=== PATIENT | female | born 1930 | race Caucasian/White ===

== ENCOUNTER 2017-02-07 16:54 | Inpatient (IN) | payer BC ==
[~2017-02-07] VITALS: Ht 162.6 cm; Wt 70.8 kg
[2017-02-07] VITALS (9 sets, daily range): BP systolic 107–156; BP diastolic 45–104
--- NOTE | 2017-02-07 16:55 | NUR ---
[id number] FOR SOB, ARRIVED ON NRM . BS-114. PATIENT A/OX 4, BREATHING LABORED, TACHYPNIC. BILATERAL WHEEZING. VITALS STABLE. SAFETY AND COMFORT MEASURES IN PLACE. AWAITING MD ORDERS.
--- NOTE | 2017-02-07 17:10 | NUR ---
NEW IV STARTED ON RAC, 20 G. BLOOD DRAWN AND SENT TO LAB.
[2017-02-07] MEDS ORDERED: ALBUTEROL FS 2.5 MG/3 ML VIAL.NEB ONE (17:17)
[2017-02-07] MEDS ORDERED: IPRATROPIUM NEB FS 0.5 MG/2.5 ML AMPUL.NEB ONE (17:17)
[2017-02-07] MEDS ORDERED: CALC500T71 PO (17:21)
[2017-02-07] MEDS ORDERED: PRED5DRO7 EACHEYE (17:21)
[2017-02-07] MEDS ORDERED: AMIN30LI2 PO (17:21)
[2017-02-07] MEDS ORDERED: ALPR0.25 PO (17:21)
[2017-02-07] MEDS ORDERED: ONDA4TAB5 PO (17:21)
[2017-02-07] MEDS ORDERED: EPOE1VIA6 SQ (17:21)
[2017-02-07] MEDS ORDERED: LEVO75TA7 PO (17:21)
[2017-02-07] MEDS ORDERED: ACET-868 PO (17:21)
[2017-02-07] MEDS ORDERED: OMEG-132 PO (17:21)
[2017-02-07] MEDS ORDERED: VITA1TAB20 PO (17:21)
[2017-02-07] MEDS ORDERED: LISI-607 PO (17:21)
[2017-02-07] MEDS ORDERED: MULT-213 PO (17:21)
[2017-02-07] MEDS ORDERED: ISOS30TA6 PO (17:21)
[2017-02-07] MEDS ORDERED: LACT1CAP65 PO (17:21)
[2017-02-07] MEDS ORDERED: VITA-294 PO (17:21)
[2017-02-07] MEDS ORDERED: ATOR80TA PO (17:21)
[2017-02-07] MEDS ORDERED: FURO20TA4 PO ×2 (17:21)
[2017-02-07] MEDS ORDERED: TRAV5DRO EACHEYE (17:21)
[2017-02-07] MEDS ORDERED: CARV6.252 PO (17:21)
[2017-02-07] MEDS ORDERED: MAGN400O6 PO (17:21)
[2017-02-07] MEDS ORDERED: ESCI5TAB PO (17:21)
[2017-02-07] MEDS ORDERED: TRAZ-144 PO (17:21)
[2017-02-07] MEDS ORDERED: DORZ10DR13 EACHEYE (17:21)
--- NOTE | 2017-02-07 17:25 | NUR ---
URINE OBTAINED VIA STRAIGHT CATH AND SENT TO LAB PER MD ORDERS.
[2017-02-07 17:29] LABS: BASOPHILS # (AUTO) 0.1 /CMM (0.0-0.2); BASOPHILS % (AUTO) 0.5 % (0.0-2.0); EOSINOPHILS % (AUTO) 0.4 % (0.0-6.0); HEMATOCRIT 32 % (33-45); HEMOGLOBIN 10.6 g/dL (11.5-14.8); LYMPHOCYTES % (AUTO) 8.2 % (20.0-44.0); MEAN CORPUSCULAR HEMOGLOBIN 30 PG (26.0-33.0); MEAN CORPUSCULAR HGB CONC 33 g/dl (31.0-36.0); MEAN CORPUSCULAR VOLUME 92 fL (82-100); MONOCYTES # (AUTO) 0.9 /CMM (0.1-1.30); MONOCYTES % (AUTO) 7.3 % (2.0-12.0); NEUTROPHILS # (AUTO) 9.7 /CMM (1.8-8.9); NEUTROPHILS % (AUTO) 83.6 % (43.0-81.0); PLATELET COUNT (AUTO) 258 /CMM (150-450); RDW COEFFICIENT OF VARIATION 15.6 (11.5-15.0); WHITE BLOOD COUNT (AUTO) 11.7 K/uL (4.3-11.0)
[2017-02-07] MEDS ORDERED: IPRATROPIUM NEB FS 0.5 MG/2.5 ML AMPUL.NEB NEB ONE (17:30)
[2017-02-07] MEDS ORDERED: ALBUTEROL FS 2.5 MG/3 ML VIAL.NEB NEB ONE (17:30)
[2017-02-07 17:48] LABS: INR 1.1 (0.87-1.13); PROTHROMBIN TIME 11.4 SECS (9.5-12.7)
[2017-02-07 17:59] LABS: CALCIUM, SERUM 9.2 mg/dL (8.5-10.1); CARBON DIOXIDE 30 mmol/L (21-32); CHLORIDE 94 mmol/L (98-107); CREATININE 1.1 mg/dL (0.6-1.3); GLUCOSE 162 mg/dL (74-106); POTASSIUM 4.3 mmol/L (3.5-5.1); SODIUM SERUM 129 mmol/L (136-145); UREA NITROGEN, BLOOD 22 mg/dL (7-18)
[2017-02-07] MEDS ORDERED: NITROGLYCERIN PACKET 1 GM PACKET TD ONE (18:00)
[2017-02-07] MEDS ORDERED: ASPIRIN 325 MG TABLET PO ONE (18:00)
[2017-02-07] MEDS ORDERED: FUROSEMIDE 40 MG/4 ML VIAL IV ONE (18:00)
--- NOTE | 2017-02-07 18:05 | NUR ---
PATIENT PLACED ON BIPAP BY RT, 09/08, FIO2 60%, RATE 14. TOLERATING WELL, WILL CONTINUE TO MONITOR.
[2017-02-07 18:07] LABS: APPEARANCE,URINE SL CLOUDY (CLEAR); BILIRUBIN,URINE NEGATIVE (NEGATIVE); BLOOD, URINE TRACE Ery/uL (NEGATIVE); COLOR,URINE YELLOW (YELLOW); KETONES,URINE NEGATIVE (NEGATIVE); LEUKOCYTE ESTERASE ,URINE 3+ (NEGATIVE); NITRITE, URINE POSITIVE (NEGATIVE); PROTEIN,URINE NEGATIVE (NEGATIVE); UGLUCOSE NEGATIVE (NEGATIVE); UROBILINOGEN,URINE 0.2 EU/dL (0.2)
[2017-02-07 18:12] LABS: TROPONIN I 0.056 ng/mL (0.00-0.056)
[2017-02-07 18:15] LABS: ALANINE AMINOTRANSFERASE 19 U/L (12-78); ALKALINE PHOSPHATASE 79 U/L (46-116); ASPARTATE AMINOTRANSFERASE 12 U/L (15-37); B-TYPE NATRIURETIC PEPTIDE 8408 PG/ML (0-125); BILIRUBIN,DIRECT 0.2 mg/dL (0.0-0.2); BILIRUBIN,TOTAL 0.7 mg/dL (0.2-1.0); TOTAL PROTEIN, SERUM 7.4 g/dL (6.4-8.2)
--- NOTE | 2017-02-07 18:15 | NUR ---
@1810 pt. 86 Y OLD FEMALE POST TX'S PLACED ON BIPAP WITH NOTED SETTINGS ( IPAP/EPAP 15/5 RR 14 FIO2 60% PS 10) PER ORDER AND CONTINUE FOR MONITORING. EQUAL CHEST RISE NOTED PT. SORAYA. WELL NO DISTRESS NOTED AMBU BAG REMAIN AT THE BEDSIDE.
[2017-02-07 18:19] LABS: BACTERIA,URINE Many /HPF (None Seen); SQUAMOUS EPITHELIAL CELL,UR Moderate /HPF (None Seen); WBC,URINE 51-80 /HPF (0-3)
[2017-02-07] MEDS ORDERED: NITROGLYCERIN PACKET 1 GM PACKET ONE (18:29)
[2017-02-07] MEDS ORDERED: ASPIRIN 325 MG TABLET ONE (18:29)
[2017-02-07] MEDS ORDERED: FUROSEMIDE 40 MG/4 ML VIAL ONE (18:29)
[2017-02-07] MEDS ORDERED: ONDANSETRON HCL/PF 4 MG/2 ML VIAL IVP PRN (18:30)
[2017-02-07] MEDS ORDERED: ALBUTEROL FS 2.5 MG/0.5 ML VIAL.NEB NEB PRN (18:30)
[2017-02-07] MEDS ORDERED: ZOLPIDEM TARTRATE 5 MG TABLET PO PRN (18:30)
[2017-02-07] MEDS ORDERED: ACETAMINOPHEN 325 MG TABLET PO PRN ×2 (18:30)
[2017-02-07] MEDS ORDERED: MAG HYDROX/AL HYDROX/SIMETH 30 ML UDC PO PRN (18:30)
[2017-02-07] MEDS ORDERED: HYDROCODONE/APAP 5/325MG 1 EACH TABLET PO PRN (18:30)
[2017-02-07] MEDS ORDERED: MAGNESIUM HYDROXIDE 30 ML UDC PO PRN ×2 (18:30)
[2017-02-07] MEDS ORDERED: Z GUARD REMEDY 2 OZ OINT TP PRN (18:30)
--- NOTE | 2017-02-07 18:50 | NUR ---
PATIENT MEDICATED PER MD ORDERS.
--- NOTE | 2017-02-07 19:20 | NUR ---
REPORT GIVEN TO LUPE FOR JORGE.
--- NOTE | 2017-02-07 19:29 | NUR ---
ECHO COMPLETED BY TECH.
--- NOTE | 2017-02-07 19:52 | NUR ---
REPORT GIVEN TO MOE TORO FOR JORGE.
--- NOTE | 2017-02-07 19:54 | NUR ---
PRIME SEPSIS SURVELLIANCE TEAM CALLED RE: PT NEEEDING BROAD [employer], PRIOR TO ADMISSION. AND DR. WHITNEY NOTIFIED. DR. WHITNEY STATED THAT ADMITTING MD PROVIDE ORDERS.
[2017-02-07] MEDS: VITAMIN E 1,000 UNIT CAPSULE PO SCH ×2 (20:00→21:17)
[2017-02-07] MEDS ORDERED: ONDANSETRON 4 MG TAB.RAPDIS PO PRN (20:00)
--- NOTE | 2017-02-07 20:00 | NUR ---
RN NOTES PT BROUGHT IN VIA GURNEY FROM ER. A/O X3, LATVIAN SPEAKING. ON BIPAP WITH SETTINGS 15/5, RATE 14, FIO2 60%, SATURATING WELL, NO S/S OF RESP DISTRESS. CURRENTLY SR ON THE MONITOR, HR 70'S. CURRENTLY ON DIAPERS. SKIN IS INTACT. RIGHT AC 20G AND RIGHT WRIST 24G, BOTH FLUSHED AND PATENT, NO S/S OF INFILTRATION/INFECTION, DRESSINGS CDI. BED LOW AND LOCKED, SIDERAILS UP, CALL LIGHT WITHIN REACH. WILL MONITOR
[2017-02-07] MEDS: NITROGLYCERIN 30 GM TUBE TP SCH (20:46)
[2017-02-07] MEDS ORDERED: FUROSEMIDE 40 MG/4 ML VIAL IV SCH (21:00)
[2017-02-07] MEDS: ENOXAPARIN SODIUM 30 MG/0.3 ML DISP.SYRIN SQ SCH (21:16)
[2017-02-07] MEDS: PROSOURCE / PROSTAT (PYXIS) 30 ML UDC PO SCH (21:16)
[2017-02-07] MEDS: LATANOPROST EYE DROP 0.005% 2.5 ML BOTTLE EACHEYE SCH (21:18)
[2017-02-07] MEDS: TRAZODONE 50 MG TABLET PO SCH (21:19)
[2017-02-07] MEDS: ESCITALOPRAM OXALATE (10 MG) 10 MG TABLET PO SCH (21:19)
[2017-02-07 21:22] LABS: ABG OXYGEN SATURATION 97.7 % (92.0-98.5); ABG PH 7.373 (7.350-7.450); ABG PO2 116.6 mmHg (75.0-100.0); AaDO2 252.9 mmHg; COHb 0.2 % (0.5-1.5); MetHb 0.8 % (0.0-1.5); O2Hb 96.7 % (94.0-97.0); PEEP,BG 5 cm H2O; SITE, ABG Right Radial; VENT MODE, BG S/T 14 15/5 60%
[2017-02-07] MEDS ORDERED: ATORVASTATIN 40 MG TABLET PO SCH (22:00)
[2017-02-08] VITALS (29 sets, daily range): BP systolic 96–150; BP diastolic 38–90
--- NOTE | 2017-02-08 00:45 | NUR ---
RN NOTES PT REMOVED BIPAP MASK, SHE REFUSES TO PUT MASK BACK ON. TEMPORARILY PUT HER ON 5L NASAL CANNULA, CURRENTLY SATURATING @ 94% WITH NO S/S OF RESP DISTRESS. WILL MONITOR CLOSELY AND ATTEMPT TO PUT BACK BIPAP MASK NEEDED
--- NOTE | 2017-02-08 01:09 | NUR ---
RN NOTES PT IS SATURATING @ 89% ON 5L NASAL CANNULA. PUT HER BACK ON BIPAP WITH HER SATURATING > 95%. WILL MONITOR
[2017-02-08] MEDS ORDERED: NITROGLYCERIN PACKET 1 GM PACKET ONE (04:46)
[2017-02-08] MEDS: NITROGLYCERIN 30 GM TUBE TP SCH ×3 (04:47→21:00)
[2017-02-08 05:02] LABS: CALCIUM, SERUM 8.6 mg/dL (8.5-10.1); CARBON DIOXIDE 30 mmol/L (21-32); CHLORIDE 95 mmol/L (98-107); GLUCOSE 93 mg/dL (74-106); MAGNESIUM 2.2 mg/dL (1.8-2.4); PHOSPHORUS 4.2 mg/dL (2.5-4.9); POTASSIUM 3.7 mmol/L (3.5-5.1); SODIUM SERUM 131 mmol/L (136-145); UREA NITROGEN, BLOOD 25 mg/dL (7-18)
--- NOTE | 2017-02-08 06:25 | NUR ---
RN CLOSING NOTES PT REMAINS STABLE OF THE MOMENT. ALL DUE MEDS GIVEN, AM CARE PROVIDED. REMAINS TO BE ON BIPAP WITH SATURATION WNL, NO S/S OF RESP DISTRESS. WILL ENDORSE JORGE TO AM RN
[2017-02-08 07:42] LABS: BASOPHILS % (AUTO) 0.3 % (0.0-2.0); EOSINOPHILS # (AUTO) 0.3 /CMM (0.0-0.7); EOSINOPHILS % (AUTO) 2.5 % (0.0-6.0); HEMATOCRIT 30 % (33-45); HEMOGLOBIN 10.1 g/dL (11.5-14.8); LYMPHOCYTES # (AUTO) 1.3 /CMM (0.8-4.8); LYMPHOCYTES % (AUTO) 10.8 % (20.0-44.0); MEAN CORPUSCULAR HEMOGLOBIN 30 PG (26.0-33.0); MEAN CORPUSCULAR HGB CONC 33 g/dl (31.0-36.0); MEAN CORPUSCULAR VOLUME 91 fL (82-100); MONOCYTES # (AUTO) 0.9 /CMM (0.1-1.30); MONOCYTES % (AUTO) 8.1 % (2.0-12.0); NEUTROPHILS # (AUTO) 9.1 /CMM (1.8-8.9); NEUTROPHILS % (AUTO) 78.3 % (43.0-81.0); PLATELET COUNT (AUTO) 251 /CMM (150-450); RDW COEFFICIENT OF VARIATION 16.5 (11.5-15.0); RED BLOOD CELL COUNT(AUTO) 3.34 MIL/uL (4.0-5.2); WHITE BLOOD COUNT (AUTO) 11.7 K/uL (4.3-11.0)
--- NOTE | 2017-02-08 08:00 | NUR ---
ICU/RN INITIAL NOTES,AM RECEIVED REPORT FROM NIGHT NURSE. PT TAKEN OFF BIPAP AND PLACED ON VENTURI MASK 15L, 50%. PT ALERT, AWAKE, FOLLOWS COMMANDS, TELUGU SPEAKING ONLY. PT ANXIOUS, LABORED RESPIRATIONS NOTED, ATTEMPTING TO GET OUT OF BED. ORDERS FOR ABG RECEIVED. PT ON TELE, SINUS. PYLE IN PLACE DRAINING YELLOW URINE. PIVS PATENT AND INTACT, NO S/S OF INFECTION OR INFILTRATION NOTED. ALL NEEDS WILL BE ATTENDED TO, SAFETY MEASURES TAKEN, BED IN LOW POSITION, SIDE RAILS UP, CALL LIGHT WITHIN REACH. BED ALARM ON.
[2017-02-08 08:06] LABS: THYROID STIMULATING HORMONE 1.143 uIU/mL (0.358-3.74)
[2017-02-08] MEDS: ALPRAZOLAM 0.25 MG TABLET PO PRN ×2 (08:08→21:39)
[2017-02-08] MEDS: VITAMIN B COMP W-C 1 TAB TABLET PO SCH (08:12)
[2017-02-08] MEDS: CALCIUM CARBONATE (1250) 500 MG TABLET PO SCH (08:12)
[2017-02-08] MEDS: MULTIVIT, IRON, MIN NO. 8, FA 1 TAB PO SCH (08:13)
[2017-02-08] MEDS: LISINOPRIL (5MG) 5 MG TABLET PO SCH (08:13)
[2017-02-08] MEDS: CARVEDILOL 6.25 MG TABLET PO SCH ×2 (08:13→17:31)
[2017-02-08] MEDS: ISOSORBIDE MONONITRATE (30MG) 30 MG TAB.SR.24H PO SCH (08:13)
[2017-02-08] MEDS: LEVOTHYROXINE SODIUM 75 MCG TABLET PO SCH (08:14)
[2017-02-08] MEDS: TIMOLOL MAL/DORZOLAM HCL OPHTH 10 ML BOTTLE EACHEYE SCH ×2 (08:14→17:32)
[2017-02-08] MEDS: VITAMIN E 1,000 UNIT CAPSULE PO SCH (08:15)
[2017-02-08] MEDS: PROSOURCE / PROSTAT (PYXIS) 30 ML UDC PO SCH (08:15)
[2017-02-08] MEDS: LACTOBACILLUS RHAMNOSUS GG 1 EACH CAP.SPRINK PO SCH (08:24)
[2017-02-08] MEDS: POTASSIUM CHLORIDE 20 MEQ TAB.PRT.SR PO SCH ×3 (08:24→11:43)
[2017-02-08] MEDS: FUROSEMIDE 40 MG/4 ML VIAL IV SCH ×3 (08:24→17:46)
[2017-02-08] MEDS ORDERED: OMEGA PO SCH (09:00)
[2017-02-08] MEDS ORDERED: DHA PO SCH (09:00)
[2017-02-08] MEDS ORDERED: EPA PO SCH (09:00)
[2017-02-08] MEDS ORDERED: FISH OIL PO SCH (09:00)
[2017-02-08] MEDS ORDERED: [UNRECOGNIZED DRUG - OTHER] PO SCH (09:00)
[2017-02-08 09:04] LABS: ABG BASE EXCESS 3.7 mmol/L; ABG OXYGEN SATURATION 80.8 % (92.0-98.5); ABG PCO2 55.1 mmHg (35.0-45.0); ABG PH 7.357 (7.350-7.450); ABG PO2 47.3 mmHg (75.0-100.0); AaDO2 247.2 mmHg; COHb 0.3 % (0.5-1.5); MetHb 0.8 % (0.0-1.5); O2Hb 79.9 % (94.0-97.0); SITE, ABG Right Radial
--- NOTE | 2017-02-08 09:30 | NUR ---
ICU/RN: ABG REVIEWED BY . PT PLACED BACK ON BIPAP, IN DISTRESS, ANXIOUS.
[2017-02-08] MEDS: ZOSYN IVPB 2.25 G in IV D5W 50ml IV SCH ×3 (11:45→23:29)
[2017-02-08] MEDS ORDERED: EPOETIN ALFA (4000 UNIT) 4,000 UNIT/ML VIAL SQ SCH (15:00)
[2017-02-08] MEDS: ALBUTEROL FS 2.5 MG/0.5 ML VIAL.NEB NEB SCH ×4 (16:30→23:30)
--- NOTE | 2017-02-08 18:10 | NUR ---
ICU/RN: TRANSFER NOTE REPORT ENDORSED TO ANETTE ROSA. PT TRANSFERRED VIA BED AND ACCORDING TO ACLS GUIDELINES. ALL MEDICATIONS AND BELONGINGS SENT WITH PT. DAUGHTER OF PT ACCOMPANIED DURING TRANSFER. VSS. PT TAKEN OFF BIPAP, TOLERATING WELL AT THIS TIME. SETTINGS FOR BIPAP ENDORSED, WILL PLACE ON PT NEEDED. ALL NEEDS MET, BED BATH GIVEN, LINENS CHANGED.
--- NOTE | 2017-02-08 18:30 | NUR ---
RN NOTE RECEIVED PT FROM ICU ON BIPAP, AOX4, DAUGHTER AT BEDSIDE, IV IN PLACE, PYLE CATHETER IN PLACE, ON TELEMETRY SR WITH BBB, 76 BPM, SAFETY MEASURES IMPLEMENTED, KERWIN LIGHT WITHIN REACH.
--- NOTE | 2017-02-08 19:05 | NUR ---
RN NOTE ASKED SEVERAL RTS TO BRING PULSE OXIMETRY MACHINE FOR THE PT, WITHOUT RESULT. WILL FOLLOW UP, PT STABLE ON BIPAP.
--- NOTE | 2017-02-08 20:10 | NUR ---
RN NOTE. RECEIVED THE PT REST ON THE SHERLYN. AWAKE, ALERT, CONFUSED. PT ON BIPAP. SETTINGS 15/5, RATE 18, FIO2 50%. SAT 98%. NO ACUTE DISTRESS NOTED. HEMOTHERAPIST SHOWING NSR. IV RT HAND 20G, RT HAND 24G. SALINE LOCK. HOB ELEVATED. FC PATENT. TURN AND REPOSITION Q2H. WILL CONTINUE TO MONITOR VITALS.
[2017-02-08] MEDS: LATANOPROST EYE DROP 0.005% 2.5 ML BOTTLE EACHEYE SCH (21:23)
[2017-02-08] MEDS: ESCITALOPRAM OXALATE (10 MG) 10 MG TABLET PO SCH (21:24)
[2017-02-08] MEDS: TRAZODONE 50 MG TABLET PO SCH (21:24)
[2017-02-08] MEDS: ENOXAPARIN SODIUM 30 MG/0.3 ML DISP.SYRIN SQ SCH (21:25)
[2017-02-09] VITALS: BP_SYST 114; BP_SYST 118; BP_DIAS 45; BP_DIAS 46
[2017-02-09] MEDS: ALBUTEROL FS 2.5 MG/0.5 ML VIAL.NEB NEB SCH ×5 (02:33→14:49)
--- NOTE | 2017-02-09 02:51 | NUR ---
RN NOTE. AM CARE, ORAL CARE, BED BATH GIVEN. REMAINING SAME BIPAP SETTING TOLERATED WELL. SAT 98%. NETWORK ANNOUNCER SHOWING NSR. IV RT HAND 20G. SALINE LOCK. HOB ELEVATED. AFEBRILE. FC PATENT. TURN AND REPOSITION Q2H. WILL CONTINUE TO MONITOR VITALS.
[2017-02-09 04:00] VITALS: BP_SYST 124; BP_SYST 93; BP_DIAS 50; BP_DIAS 74
[2017-02-09] MEDS: ZOSYN IVPB 2.25 G in IV D5W 50ml IV SCH ×2 (04:59→14:09)
[2017-02-09] MEDS: NITROGLYCERIN 30 GM TUBE TP SCH ×2 (05:00→14:59)
[2017-02-09 06:27] LABS: BASOPHILS # (AUTO) 0.1 /CMM (0.0-0.2); BASOPHILS % (AUTO) 0.6 % (0.0-2.0); EOSINOPHILS # (AUTO) 0.5 /CMM (0.0-0.7); EOSINOPHILS % (AUTO) 4.2 % (0.0-6.0); HEMATOCRIT 30 % (33-45); HEMOGLOBIN 9.7 g/dL (11.5-14.8); LYMPHOCYTES # (AUTO) 1.3 /CMM (0.8-4.8); LYMPHOCYTES % (AUTO) 10.4 % (20.0-44.0); MEAN CORPUSCULAR HEMOGLOBIN 30 PG (26.0-33.0); MEAN CORPUSCULAR HGB CONC 33 g/dl (31.0-36.0); MEAN CORPUSCULAR VOLUME 92 fL (82-100); MONOCYTES # (AUTO) 1.1 /CMM (0.1-1.30); MONOCYTES % (AUTO) 8.8 % (2.0-12.0); NEUTROPHILS # (AUTO) 9.2 /CMM (1.8-8.9); PLATELET COUNT (AUTO) 248 /CMM (150-450); RDW COEFFICIENT OF VARIATION 16.5 (11.5-15.0); WHITE BLOOD COUNT (AUTO) 12.1 K/uL (4.3-11.0)
--- NOTE | 2017-02-09 07:10 | NUR ---
MIRELLA RN NOTES RECEIVED PATIENT AOX2 -3 JAMAICAN SPEAKING ONLY , ON BIPAP SETTINGS ORDERED SPO2 OF 95-98% , SR 85 WITH BBB ON PROOFREADER , FC DRAINING WELL VIA GRAVITY WITH CLEAR YELLOW URINE , IV OF R AC # 20 AND R WRIST # 24 PATENT AND INTACT SL , ALL NEEDS ATTENDED , BED ON LOW AND LOCKED POSITION , SIDE RAILS X2 ,CALL LIGHT WITHIN REACH , HOB @ 35 , WILL CONTINUE TO MONITOR
[2017-02-09 08:00] VITALS: BP 127/39
--- NOTE | 2017-02-09 09:00 | NUR ---
MIRELLA RN NOTES RECEIVED ABG RESULT FROM YULIANA ,BIPAP HELD , PLACED PT ON 10LPM MASK , SPO2 OF 90-92% TOLERATING WELL WILL CONTINUE TO MONITOR
[2017-02-09 09:02] LABS: ALANINE AMINOTRANSFERASE 14 U/L (12-78); ALBUMIN 2.4 g/dL (3.4-5.0); ALKALINE PHOSPHATASE 60 U/L (46-116); ASPARTATE AMINOTRANSFERASE 16 U/L (15-37); BILIRUBIN,TOTAL 0.6 mg/dL (0.2-1.0); CALCIUM, SERUM 8.8 mg/dL (8.5-10.1); CARBON DIOXIDE 31 mmol/L (21-32); CHLORIDE 98 mmol/L (98-107); CREATININE 1.4 mg/dL (0.6-1.3); GLUCOSE 97 mg/dL (74-106); MAGNESIUM 2.2 mg/dL (1.8-2.4); SODIUM SERUM 135 mmol/L (136-145); TOTAL PROTEIN, SERUM 6.2 g/dL (6.4-8.2); UREA NITROGEN, BLOOD 35 mg/dL (7-18)
[2017-02-09 09:07] LABS: TROPONIN I 0.073 ng/mL (0.00-0.056)
[2017-02-09] MEDS: CALCIUM CARBONATE (1250) 500 MG TABLET PO SCH (09:10)
[2017-02-09] MEDS: LISINOPRIL (5MG) 5 MG TABLET PO SCH (09:10)
[2017-02-09] MEDS: VITAMIN B COMP W-C 1 TAB TABLET PO SCH (09:10)
[2017-02-09] MEDS: TIMOLOL MAL/DORZOLAM HCL OPHTH 10 ML BOTTLE EACHEYE SCH ×2 (09:11→17:02)
[2017-02-09] MEDS: VITAMIN E 1,000 UNIT CAPSULE PO SCH (09:11)
[2017-02-09] MEDS: LACTOBACILLUS RHAMNOSUS GG 1 EACH CAP.SPRINK PO SCH (09:11)
[2017-02-09] MEDS: CARVEDILOL 6.25 MG TABLET PO SCH ×2 (09:11→17:03)
[2017-02-09] MEDS: ISOSORBIDE MONONITRATE (30MG) 30 MG TAB.SR.24H PO SCH (09:11)
[2017-02-09] MEDS: LEVOTHYROXINE SODIUM 75 MCG TABLET PO SCH (09:11)
[2017-02-09] MEDS: PROSOURCE / PROSTAT (PYXIS) 30 ML UDC PO SCH (09:11)
[2017-02-09] MEDS: MULTIVIT, IRON, MIN NO. 8, FA 1 TAB PO SCH (09:11)
[2017-02-09] MEDS: ALPRAZOLAM 0.25 MG TABLET PO PRN (09:12)
[2017-02-09 09:13] LABS: ABG BASE EXCESS 6.8 mmol/L; ABG OXYGEN SATURATION 92.5 % (92.0-98.5); ABG PCO2 48.3 mmHg (35.0-45.0); ABG PH 7.438 (7.350-7.450); ABG PO2 64.7 mmHg (75.0-100.0); COHb 0.8 % (0.5-1.5); MetHb 0.4 % (0.0-1.5); O2Hb 91.4 % (94.0-97.0); SITE, ABG Right Radial; VENT MODE, BG simple mask
--- NOTE | 2017-02-09 09:40 | NUR ---
MIRELLA RN NOTES SEEN AND EVALUATED BY DR GUTIERREZ , DISCUSSED LABS , VITAL SIGNS , PT HAS CRACKLES ON BILETERAL LOWER LOBE UPON AUSCULTATION , PER MD HE WILL ORDER LASIX FOR DIURESIS .
[2017-02-09] MEDS: FUROSEMIDE 40 MG/4 ML VIAL IV SCH ×3 (10:34→17:02)
[2017-02-09 12:00] VITALS: BP 129/45
[2017-02-09 12:12] LABS: *SPE ALBUMIN 3.2 g/dL (2.9-4.4); *SPE ALPHA-1-GLOBULIN 0.4 g/dL (0.0-0.4); *SPE BETA GLOBULIN 0.8 g/dL (0.7-1.3); *SPE GLOBULIN, TOTAL 3.2 g/dL (2.2-3.9); *SPE M-SPIKE Not Observed g/dL (Not Observed); *SPE PROTEIN TOTAL 6.4 g/dL (6.0-8.5); *SPEGAMMA GLOBULIN 1.1 g/dL (0.4-1.8)
[2017-02-09] MEDS ORDERED: SOD FERRIC GLUC 125 MG in IV NS 0.9% 100 ML IV SCH (14:00)
[2017-02-09 16:00] VITALS: BP_SYST 136; BP_SYST 139; BP_DIAS 77
[2017-02-09 17:03] VITALS: BP 136/77
--- NOTE | 2017-02-09 18:30 | NUR ---
RN NOTES PATIENT STABLE UPON DISCHARGE , NOT IN ACUTE DISTRESS , AFEBRILE , V/S STABLE ,ON 6LPM NC SPO2 OF 100% , SR 75 ON TELE MONITOR , AOX3 GREEK SPEAKING ,DAUGHTER AT BEDSIDE , DISCUSSED DISCHARGE INSTRUCTIONS , MEDICATIONS AND TRANSFER TO [facility] DUE TO INSURANCE , PT WILL BE TRANSFERRED TO ROOM 504 , FC DRAINING VIA GRAVITY WITH CLEAR YELLOW URINE , SKIN ASSESSMENT DONE , SKIN IS INTACT NO NEW WOUNDS NOTED , IV OF L AC # 20 AND R WRIST # 24 PATENT AND INTACT SL , RPOERT GIVEN TO EMS FOR PATIENT TRANSFER , POLST GIVEN TO EMS SPOKE WITH MARIA LUISA ROSA FROM [facility] , REPORT GIVEN FOR CONTINUITY OF CARE , ALL QUESTIONS ANSWERED , NOTIFIED PT IS ON CONTACT ISOLATION , S DIFF STOOL IS POSITIVE , BUT PT HAS NO ACTIVE DIARRHEA .
[2017-02-09] MEDS ORDERED: MEROPENEM 500 MG in IV NS 0.9% 50 ML IV SCH (21:00)
== END 2017-02-09 18:21 | disposition short-term general hospital (02) | DRG 871 ==
LOC: ER 16:55 → ICU 19:39 → TELE-TD 19:39 → UNDOADMIN 19:39 → TELE-TD 02-08 18:28
PROVIDERS: ADMIT Internal Medicine; ATTEND Internal Medicine
PROC: 5A09457 Assistance with Respiratory Ventilation, 24-96 Consecutive Hours, Continuous Positive Airway Pressure (ICD-10-PCS; principal; 2017-02-07)
DX: A41.9 Sepsis, unspecified organism (principal); I50.23 Acute on chronic systolic (congestive) heart failure; I21.A1 Myocardial infarction type 2; E43 Unspecified severe protein-calorie malnutrition; J96.01 Acute respiratory failure with hypoxia; J96.02 Acute respiratory failure with hypercapnia; J18.9 Pneumonia, unspecified organism; N17.9 Acute kidney failure, unspecified; E88.09 Other disorders of plasma-protein metabolism, not elsewhere classified; I13.0 Hypertensive heart and chronic kidney disease with heart failure and stage 1 through stage 4 chronic kidney disease, or unspecified chronic kidney disease; N39.0 Urinary tract infection, site not specified; E87.1 Hypo-osmolality and hyponatremia; D63.8 Anemia in other chronic diseases classified elsewhere; E03.9 Hypothyroidism, unspecified; E66.01 Morbid (severe) obesity due to excess calories; E78.5 Hyperlipidemia, unspecified; F41.9 Anxiety disorder, unspecified; I25.10 Atherosclerotic heart disease of native coronary artery without angina pectoris; N18.9 Chronic kidney disease, unspecified; Z66 Do not resuscitate; Z79.899 Other long term (current) drug therapy; M62.50 Muscle wasting and atrophy, not elsewhere classified, unspecified site; B96.20 Unspecified Escherichia coli [E. coli] as the cause of diseases classified elsewhere; Z16.12 Extended spectrum beta lactamase (ESBL) resistance; Z68.26 Body mass index [BMI] 26.0-26.9, adult; I25.2 Old myocardial infarction; R65.20 Severe sepsis without septic shock
CPT/HCPCS: 36415; 36600; 71010-TC; 80048-TC; 80053-TC; 80061-TC; 80076-TC; 81000-TC; 82272-TC; 82306; 82728-TC; 82803-TC; 83540-TC; 83605-TC; 83735-TC; 83880; 84100-TC; 84155; 84165; 84439-TC; 84443-TC; 84484-TC; 85025-TC; 85730-TC; 87040-TC; 87081-TC; 87086-TC; 87186-TC; 93307-TC; 99082-TC; A4216; A4606; J0885; J1650; J1940; J2185; J2543; J2916; J7030; J7060

== ENCOUNTER 2017-02-17 23:53 | Inpatient (IN) | payer BC ==
[~2017-02-17] VITALS: Ht 167.6 cm; Wt 69.4 kg
[~2017-02-17 23:53] MED LIST: ACET-868 PO; ALPR0.25 PO; AMIN30LI2 PO; ATOR80TA PO; CALC500T71 PO; CARV6.252 PO; DORZ10DR13 EACHEYE; EPOE1VIA6 SQ; ESCI5TAB PO; FURO20TA4 PO; ISOS30TA6 PO; LACT1CAP65 PO; LEVO75TA7 PO; LISI-607 PO; MAGN400O6 PO; MULT-213 PO; OMEG-132 PO; ONDA4TAB5 PO; PRED5DRO7 EACHEYE; TRAV5DRO EACHEYE; TRAZ-144 PO; VITA-294 PO; VITA1TAB20 PO
[2017-02-18] VITALS (92 sets, daily range): BP systolic 67–136; BP diastolic 34–96
--- NOTE | 2017-02-18 00:10 | NUR ---
PT IS ON THE MONITOR AND CONTINUOUS PULSE OX. PT IS HYPOTENSIVE AND C/O CHEST PAIN 5/10. DIMINSHED BREATH SOUNDS NOTED BILATERALLY. PT HAS A BRUISE ON LLQ OF ABD AND IS ON A DIAPER. NO SKIN BREAKDOWN NOTED.
--- NOTE | 2017-02-18 00:10 | NUR ---
PT BIB PA WITH A C/O SOB, POSS PNA FROM SNF. PT IS AA7O X2. PT SPEAKS SOME SCOTTISH AND IS PREDOMINENTLY SLOVENIAN SPEAKING.
[2017-02-18] MEDS ORDERED: VANCOMYCIN 1 GM in IV D5W 250 ML IV ONE (00:30)
[2017-02-18] MEDS ORDERED: PIPERACILLIN /TAZOBACTAM 3.375 G in IV D5W 50 ML IV ONE (00:30)
[2017-02-18] MEDS ORDERED: LEVOFLOXACIN 750 MG /D5W 150ML 150 ML IV ONE (00:30)
[2017-02-18] MEDS ORDERED: ACETAMINOPHEN 650 MG/SUPP.RECT RC ONE ×2 (00:30→00:39)
[2017-02-18] MEDS ORDERED: DILTIAZEM HCL 50 MG IV IV ONE (00:30)
[2017-02-18] MEDS ORDERED: DILTIAZEM HCL IV 125 MG in IV D5W 100 ML IV PRN (00:30)
[2017-02-18] MEDS ORDERED: DILTIAZEM HCL 50 MG IV ONE (00:39)
[2017-02-18 00:41] LABS: BASOPHILS % (AUTO) 0.1 % (0.0-2.0); EOSINOPHILS # (AUTO) 0.1 /CMM (0.0-0.7); EOSINOPHILS % (AUTO) 0.2 % (0.0-6.0); HEMATOCRIT 35 % (33-45); LYMPHOCYTES % (AUTO) 3.5 % (20.0-44.0); MEAN CORPUSCULAR HEMOGLOBIN 29 PG (26.0-33.0); MEAN CORPUSCULAR HGB CONC 31 g/dl (31.0-36.0); MEAN CORPUSCULAR VOLUME 93 fL (82-100); MONOCYTES % (AUTO) 3.8 % (2.0-12.0); NEUTROPHILS # (AUTO) 25.2 /CMM (1.8-8.9); NEUTROPHILS % (AUTO) 92.4 % (43.0-81.0); PLATELET COUNT (AUTO) 263 /CMM (150-450); RDW COEFFICIENT OF VARIATION 17.1 (11.5-15.0); RED BLOOD CELL COUNT(AUTO) 3.79 MIL/uL (4.0-5.2); WHITE BLOOD COUNT (AUTO) 27.3 K/uL (4.3-11.0)
[2017-02-18 00:54] LABS: CALCIUM, SERUM 8.7 mg/dL (8.5-10.1); CARBON DIOXIDE 28 mmol/L (21-32); CHLORIDE 96 mmol/L (98-107); CREATININE 2.4 mg/dL (0.6-1.3); GLUCOSE 178 mg/dL (74-106); POTASSIUM 3.8 mmol/L (3.5-5.1); SODIUM SERUM 132 mmol/L (136-145); UREA NITROGEN, BLOOD 40 mg/dL (7-18)
--- NOTE | 2017-02-18 00:55 | NUR ---
IN & OUT PYLE CATH DONE. APPROX 150 ML TURBID URINE OUTPUT NOTED. LAB CALLED FOR P/U
[2017-02-18 01:00] LABS: ALANINE AMINOTRANSFERASE 20 U/L (12-78); ALBUMIN 2.5 g/dL (3.4-5.0); ALKALINE PHOSPHATASE 92 U/L (46-116); ASPARTATE AMINOTRANSFERASE 10 U/L (15-37); BAND % (MANUAL) 2 % (0.0-5.0); BILIRUBIN,DIRECT 0.2 mg/dL (0.0-0.2); BILIRUBIN,TOTAL 0.7 mg/dL (0.2-1.0); LYMPHOCYTES % (MANUAL) 11 % (16-48); MONOCYTES % (MANUAL) 5 % (0-11.0); NEUTROPHILS % (MANUAL) 82 (42-76); TOTAL PROTEIN, SERUM 7.1 g/dL (6.4-8.2)
[2017-02-18] MEDS ORDERED: IV NS 0.9% 500 ML BAG IV ONE (01:00)
[2017-02-18] MEDS ORDERED: IV NS 0.9% 1,000 ML BAG IV ONE ×2 (01:00)
[2017-02-18 01:07] LABS: TROPONIN I 1.585 ng/mL (0.00-0.056)
[2017-02-18] MEDS ORDERED: ASPIRIN 325 MG TABLET PO ONE (01:30)
[2017-02-18] MEDS ORDERED: NS IV SCH ×2 (01:30)
[2017-02-18] MEDS ORDERED: Z GUARD REMEDY 2 OZ OINT TP PRN (01:30)
[2017-02-18] MEDS ORDERED: VANCOMYCIN 1 GM in IV D5W 250 ML IV SCH (01:30)
[2017-02-18] MEDS ORDERED: ONDANSETRON HCL/PF 4 MG/2 ML VIAL IVP PRN (01:30)
[2017-02-18] MEDS ORDERED: IV NS 0.9% 1,000 ML IV SCH (01:30)
[2017-02-18] MEDS ORDERED: MAGNESIUM HYDROXIDE 30 ML UDC PO PRN (01:30)
[2017-02-18] MEDS ORDERED: MAG HYDROX/AL HYDROX/SIMETH 30 ML UDC PO PRN (01:30)
[2017-02-18] MEDS: DILTIAZEM HCL 30 MG TABLET PO SCH ×2 (01:30→05:17)
[2017-02-18] MEDS ORDERED: PIPERACILLIN /TAZOBACTAM 3.375 G VIAL IV ONE (01:32)
--- NOTE | 2017-02-18 01:40 | NUR ---
PYLE CATH INSERTED APPROX 5 ML YELLOW URINE OUTPUT NOTED.
[2017-02-18] MEDS ORDERED: VANCOMYCIN 1 GM VIAL ONE (01:50)
[2017-02-18 01:53] LABS: APPEARANCE,URINE TURBID (CLEAR); BILIRUBIN,URINE 1+ (NEGATIVE); BLOOD, URINE 2+ Ery/uL (NEGATIVE); COLOR,URINE BROWN (YELLOW); KETONES,URINE TRACE (NEGATIVE); LEUKOCYTE ESTERASE ,URINE 3+ (NEGATIVE); NITRITE, URINE NEGATIVE (NEGATIVE); PH,URINE 5.5 (5.0-8.0); PROTEIN,URINE 2+ mg/dl (NEGATIVE); UGLUCOSE NEGATIVE (NEGATIVE); UROBILINOGEN,URINE 0.2 EU/dL (0.2)
--- NOTE | 2017-02-18 02:00 | NUR ---
DR. MARTINEZ CALLED AND I SPOKE TO HER RE: THE PT. PT IS STILL HYPOTENSIVE. APPROX 500 ML NS OF 2500 ML NS BOLUS INFUSED. DR. MARTINEZ WOULD LIKE A CENTRAL LINE INSERTED. DR. COTTRELL IS NOT GOING TO INSERT CENTRAL LINE AT THIS TIME. PT'S BLOOD PRESSURE IS IMPROVING. PT HAS 3 PERIPHERAL IV'S AND PT HAS 200 ML NS TO BE INFUSED. WILL RE-ASSESS LATER.
[2017-02-18 02:01] LABS: BACTERIA,URINE Moderate /HPF (None Seen); SQUAMOUS EPITHELIAL CELL,UR Few /HPF (None Seen); URINE AMORPHOUS URATE Few /HPF (None Seen); WBC,URINE TOO NUMEROUS TO COUN /HPF (0-3)
--- NOTE | 2017-02-18 02:11 | NUR ---
PT IS SATURATING AT 95% ON 4L VIA NC. PT IS MOUTH BREATHING. PT PLACED ON SIMPLE MASK AT 8L PER DR. COTTRELL.
--- NOTE | 2017-02-18 02:16 | NUR ---
ENDORSED SEPSIS RE-ASSESSMENT TO ICU NURSE. APPROX 750 ML NS STILL INFUSING.
--- NOTE | 2017-02-18 02:16 | NUR ---
CALLED REPORT TO DONNA GAITAN -ICU. ENDORSED LEVOQUIN IVP TO DONNA GAITAN.
--- NOTE | 2017-02-18 02:16 | NUR ---
PT IS C/O FEELING COLD. PT'S ORAL TEMP IS 98.1. PT HAS A SHEET OVER HER AND STATED THAT SHE IS FEELING BETTER.
--- NOTE | 2017-02-18 02:18 | NUR ---
PT'S BP IS NOW 114/44. DR. COTTRELL IS OK WITH PT BEING TRANSFERRED TO ICU.
--- NOTE | 2017-02-18 02:20 | NUR ---
PT LEFT FOR ICU VIA RBIG LAUREL.
--- NOTE | 2017-02-18 02:40 | NUR ---
ICU/RAISER HELPER RECEIVED PT FROM ER VIA GURNEY, PT IS ON 8 LITERS VIA MASK WITH SATURATION AT 95%. PT WAS ALERT AND ORT X3-4. PT ABLE TO REPLY TO SIMPLE COMMANDS. PT TRANSFER TO BED, PLACED ON PREPARATION PLANT SUPERVISOR . ASSESSMENT DONE, PT CONTINUED WITH SEPSIS PROTOCOL IVF STILL RUNNING. PT WAS ORT TO ROOM AND CALL LIGHT. DAUGHTER AT BEDSIDE
--- NOTE | 2017-02-18 02:45 | NUR ---
PT'S DAUGHTER, CLAUDINE GALVAN, IS IN THE ICU WAITING ROOM. ICU NOTIFIED. PT TRANSPORTED TO ICU VIA GURNEY PER PROTOCOL.
--- NOTE | 2017-02-18 02:53 | NUR ---
ICU/VOCAL ARTIST CORPORATE CALLED SAID THAT PT WAS UNDER SEPSIS PROTOCOL DUE HIGH LACTIC ACID AND THE REPEAT WAS HIGH WELL AT 2.1. PT WAS TO HAVE 2 BLOOD PRESSURE DOCUMENTATION IF STILL LOW F/U WITH MD. CHARGE NURSE AWARE OF THIS.
--- NOTE | 2017-02-18 03:20 | NUR ---
ICU/RISK MANAGEMENT CONSULTANT PRIMARY MD CALLED DUE TO BLOOD PRESSURE BEING LOW 60'S. CHARGE NURSE AWARE OF THE LOW BLOOD PRESSURE. CALLED MD TO START LEVO TO GET BLOOD PRESSURE GREATER THAN 90'S.
[2017-02-18] MEDS ORDERED: NOREPINEPHRINE 8 MG in IV D5W 500 ML IV PRN ×2 (03:30→09:00)
[2017-02-18] MEDS ORDERED: IV NS 0.9% 1,000 ML IV PRN (03:30)
[2017-02-18] MEDS ORDERED: METRONIDAZOLE 500MG/ NS 100ML 500 MG in PREMIX 1 EA IV SCH ×2 (03:30→13:00)
[2017-02-18] MEDS ORDERED: METRONIDAZOLE 500MG/ NS 100ML 100 ML IV ONE (04:05)
[2017-02-18] MEDS ORDERED: LEVOFLOXACIN 500 MG /D5W 100ML 100 ML IV ONE (04:05)
[2017-02-18] MEDS ORDERED: ASPIRIN 325 MG TABLET ONE (04:06)
[2017-02-18] MEDS ORDERED: DILTIAZEM HCL 30 MG TABLET ONE (04:06)
[2017-02-18] MEDS ORDERED: MEROPENEM 1 G VIAL IV ONE (04:06)
[2017-02-18] MEDS ORDERED: VANCOMYCIN HCL 125 MG/2.5 ML ORAL.SUSP ONE (04:16)
--- NOTE | 2017-02-18 04:20 | NUR ---
ICU/SAMPLE SHOE INSPECTOR AND REWORKER ER MD CAME TO PLACE CENTRAL LINE TO START LEVO FOR BLOOD PRESSURE MEDICATION. THERE WAS 2 FAILED ATTEMPTS. IN MORNING PICC LINE NURSE TO COME AND PLACE LINE. DAUGHTER IS AWARE OF THIS. ALSO AT THIS TIME ER MD SAID THAT PT NEEDS TO HAVE LEVO DUE TO LOW BLOOD PRESSURE, LEVO AT THIS TIME STARTED AT 2MCG FROM CHARGE NURSE. CALL LIGHT WITHIN REACH. ALSO AT THIS TIME THE SECOND ROUND OF IVF FROM THE SECOND SEPSIS PROTOCOL FINISHED. BLOOD PRESSURE IS STILL IN THE 70'S. CHARGE NURSE AWARE OF THIS.
[2017-02-18] MEDS ORDERED: NOREPINEPHRINE 4 MG/4 ML AMPUL IV ONE (04:26)
--- NOTE | 2017-02-18 04:50 | NUR ---
ICU/TELEMARKETING REPRESENTATIVE LEVO WAS INCREASED TO 4MCG FROM 2MCG DUE TO LOW BLOOD PRESSURE, CHARGE AWARE AND INCREASED THE LEVO WILL CONTINUE TO MONITOR THIS PT. PT APPEARS COMFORTABLE WITH CALL LIGHT WITHIN REACH
[2017-02-18] MEDS ORDERED: MEROPENEM 1 G in IV NS 0.9% 100 ML IV SCH (05:00)
--- NOTE | 2017-02-18 05:00 | NUR ---
ICU/ORAL SURGERY PHYSICIAN LEVO INCREASED TO 6MCG FROM 4. THE BLOOD PRESSURE IS 71/48. CHARGE NURSE AWARE AND INCREASED THE LEVO AND CONTINUED TO MONITOR THE BLOOD PRESSURE.
[2017-02-18] MEDS: VANCOMYCIN HCL 125 MG/2.5 ML ORAL.SUSP PO SCH ×4 (05:17→23:43)
--- NOTE | 2017-02-18 05:30 | NUR ---
ICU/AADC PLANS STAFF OFFICER LEVO AGAIN INCREASED TO 8MCG FROM 6 MCG, BLOOD PRESSURE IS 79/42. CHARGE NURSE IS AWARE OF THIS, AT THIS TIME INCREASED LEVO TO MAINTAIN SBP TO 90 WHICH MD ORDERED.
[2017-02-18 05:34] LABS: INR 1.47 (0.87-1.13); PROTHROMBIN TIME 15.4 SECS (9.5-12.7)
--- NOTE | 2017-02-18 05:53 | NUR ---
ICU/INFORMATION TECHNOLOGY SECURITY ANALYST LACTIC ACID IS NOW 1.8, WITHIN NORMAL RANGE. ALSO BLOOD PRESSURE IS 92/62. CHARGE NURSE IS AWARE OF THIS. WILL CONTINUE TO MONITOR THIS PT. CALL LIGHT WITHIN REACH, PT APPEARS TO BE COMFORTABLE NO ACUTE SIGNS OF DISTRESS.
[2017-02-18] MEDS ORDERED: PIPERACILLIN /TAZOBACTAM 4.5 G in IV D5W 50 ML IV SCH (06:00)
--- NOTE | 2017-02-18 08:00 | NUR ---
ICU/RN INITIAL NOTES,AM RECEIVED REPORT FROM NIGHT NURSE. PT ALERT, AWAKE, FOLLOWS COMMANDS. PT INDONESIAN SPEAKING ONLY. DAUGHTER AT BEDSIDE. PT ON 8LITERS SIMPLE MASK, TOLERATING WELL. NO ACUTE DISTRESS NOTED, MAINTAINING O2 SAT >92%. PT CONTINUE TO BE CONTROLLED A.FIB ON TELE, AWAITING CARDIOLOGY CONSULT. PT ON 8MCG LEVO FOR BP SUPPORT VIA PERIPHERAL LINE. SOME REDNESS AND TENDERNESS NOTED. STOPPED VASOPRESSOR, FLUSHED LINE AND DISCONTINUED PIV. PLACED ON DIFFERENT PIV. AWAITING FOR PICC NURSE TO INSERT LINE. RIGHT ARM ELEVATED WITH COMPRESS. NO PAIN NOTED, MILD REDNESS NOTED. PYLE CATH IN PLACE, DRAINING DONALD URINE. LOW URINE OUTPUT, NEPHROLOGY CONSULT PENDING. PT CURRENTLY ON FULL LIQUID DIET. ALL NEEDS WILL BE ATTENDED TO, SAFETY MEASURES TAKEN, BED IN LOW POSITION, SIDE RAILS UP, CALL LIGHT WITHIN REACH. WILL FOLLOW UP WITH ASSOCIATE ART DIRECTOR REGARDING PICC RN ETA.
[2017-02-18] MEDS ORDERED: AMIODARONE 900 MG in IV D5W 500 ML IV PRN (08:30)
[2017-02-18] MEDS ORDERED: AMIODARONE 150 MG in IV D5W 100 ML IV ONE (08:30)
[2017-02-18] MEDS: LEVOTHYROXINE SODIUM 75 MCG TABLET PO SCH (08:46)
[2017-02-18] MEDS: ASPIRIN 81 MG TAB.CHEW PO SCH (08:46)
[2017-02-18] MEDS ORDERED: CARVEDILOL 6.25 MG TABLET PO SCH (09:00)
[2017-02-18] MEDS ORDERED: PANTOPRAZOLE 40 MG VIAL IV SCH (09:00)
[2017-02-18] MEDS ORDERED: FEE PK DOSING 1 MIN EA MC ONE (09:00)
[2017-02-18] MEDS ORDERED: HEPARIN SODIUM, PORCINE 5000 UNITS/1 ML VIAL IV ONE (09:00)
[2017-02-18] MEDS: HEPARIN INFUSION/D5W 500 ML IV PRN (09:18)
[2017-02-18] MEDS ORDERED: AMIODARONE 900 MG in IV D5W 482 ML IV PRN (09:30)
--- NOTE | 2017-02-18 10:20 | NUR ---
ICU/RN: ROUNDS: 0820-PT SEEN BY DR. GUTIERREZ. PT ASSESSED, MD SPOKE TO DAUGHTER AND ANSWERED ALL QUESTIONS. ORDERS RECEIVED TO START PT ON AMIO DRIP AND HEPARIN DRIP PER ACS PROTOCOL. WILL FOLLOW THROUGH. 1009- AT BEDSIDE. ALL QUESTIONS ANSWERED, PT ASSESSED. NEW ORDERS RECEIVED. WILL FOLLOW THROUGH.
--- NOTE | 2017-02-18 10:30 | NUR ---
ICU/RN: PER SUSTAINABILITY PURCHASING AGENT PICC NURSE WILL BE HERE AT [phone]. ER DOCTOR REFUSED TO COME UP AND INSERT CENTRAL LINE, EXPLAINED IT IS AN EMERGENCY, PT IS ON AMIODARONE, HEPARIN AND LEVOPHED. CALLED , HE WAS IN HOUSE, WILL COME AND INSERT TIME SOON POSSIBLE.
[2017-02-18] MEDS ORDERED: FUROSEMIDE 40 MG/4 ML VIAL IV ONE (11:00)
--- NOTE | 2017-02-18 11:00 | NUR ---
ICU/RN: RIGHT FEMORAL CENTRAL LINE INSERTED BY . GOOD BLOOD RETURN NOTED.
[2017-02-18] MEDS: NOREPINEPHRINE 8 MG in IV D5W 500 ML IV PRN (11:17)
[2017-02-18] MEDS: ALPRAZOLAM 0.25 MG TABLET PO PRN ×2 (12:19→19:29)
[2017-02-18] MEDS: ACETAMINOPHEN 325 MG TABLET PO PRN ×2 (12:20→19:57)
--- NOTE | 2017-02-18 16:00 | NUR ---
ICU/RN: APTT, INR DRAWN, RESULTS PENDING.
--- NOTE | 2017-02-18 17:00 | NUR ---
ICU/RN: CALLED LAB REGARDING RESULTS, STILL PENDING. INFORMED THEM THAT PT IS ON HEPARIN DRIP. THEY SAID MACHINE IS BROKEN, ALMOST BACK UP. WILL FOLLOW UP
[2017-02-18] MEDS: MEROPENEM 1 G in IV NS 0.9% 100 ML IV SCH (17:22)
[2017-02-18 17:34] LABS: INR 1.71 (0.87-1.13); PROTHROMBIN TIME 17.9 SECS (9.5-12.7)
--- NOTE | 2017-02-18 18:00 | NUR ---
ICU/RN: CALLED LAB, SAID APTT ORDER WAS CANCELLED ON ITS OWN, ADDING TO 1600 LAB AND RUNNING IT STAT. WILL FOLLOW UP
--- NOTE | 2017-02-18 18:52 | NUR ---
ICU/RN: APTT >170, HOLD PER PROTOCOL
--- NOTE | 2017-02-18 18:54 | NUR ---
ICU/RN ENDING NOTES,AM REPORT WILL BE ENDORSED TO NIGHT NURSE FOR JORGE. PT ON SIMPLE MASK, TOLERATING WELL. CONTROLLED A.FIB ON TELE. AMIO INFUSING ORDERED. HEPARIN DRIP STOPPED PER PROTOCOL. WILL RESUME IN ONE HOUR WITH LOWER RATE. (PROTOCOL IN CHART). PT CONTINUES TO BE ANXIOUS, FAMILY AT BEDSIDE. ALL NEEDS MET, SAFETY MEASURES TAKEN, BED IN LOW POSITION, SIDE RAILS UP, CALL LIGHT WITHIN REACH. RIGHT FEMORAL TLC, INTACT, PATENT, NO S/S OF INFECTION OR INFILTRATION NOTED.
--- NOTE | 2017-02-18 20:44 | NUR ---
FIREARMS INSPECTOR DF PT RECEIVED WITH ORDERS TO HOLD HEPARIN GTT. LAST PTT OVER 170. LAB AT BEDSIDE FOR PTT DRAW. AWAITING RESULTS I WILL ADJUST HEPARIN GTT PER PROTOCOL.
--- NOTE | 2017-02-18 21:40 | NUR ---
PAD HAND DF PTT RESULTED PRIOR PTT RESULTED OF GREATER THAN 170. PTT RESULTS AT 2031 OF 110. PER HEPARIN ACS PROTOCOL HOLD HEPARIN GTT FOR 1 HOUR AND DECREASE DOSE BY 100 UNIT S Addendum: 02/18/17 at 2149 by LOS KHAN RN CORRECTION TO ABOVE ENTRY. STARTING HEPARIN GTT AT 1050 UNITS HOUR ON 02/18. SEE HEPARIN DOSING ORDERS. 1. FIRST PTT GREATER THAN 170 DECREASE DOSE BY 200 UNITS HOUR.HOLD GTT FOR 1 HOUR NEW ORDERED RATE OF 850 UNITS HOUR. 2.2031 PTT RESULTS OF 110. DECREASE GTT RATE BY 200 UNITS HOUR AND HOLD FOR 1 HOUR. NEW HEPARIN GTT RATE OF 650 UNITS/HR WITH PTT TO BE CHECKED WITH 6 HOURS @ 0330.
[2017-02-18] MEDS ORDERED: ESCITALOPRAM OXALATE (10 MG) 10 MG TABLET PO SCH ×2 (22:00)
[2017-02-18] MEDS ORDERED: ATORVASTATIN 40 MG TABLET PO SCH (22:00)
[2017-02-19] VITALS (100 sets, daily range): BP systolic 81–141; BP diastolic 25–94
[2017-02-19] MEDS ORDERED: TRAZODONE 50 MG TABLET ONE (00:01)
[2017-02-19] MEDS: TRAZODONE 50 MG TABLET PO SCH ×2 (00:14→21:51)
[2017-02-19] MEDS: ACETAMINOPHEN 325 MG TABLET PO PRN (01:19)
--- NOTE | 2017-02-19 02:14 | NUR ---
SEISMIC COMPUTER DF PT CONVERTED TO NSR ON AMIODARONE 0.5 MG PER PROTOCOL. PT DESATURATES ON N/C PLACED BACK ON SIMPLE MASK@8 LPM. PT ANXIOUS,RESTLESS,NEEDY DAUGHTER AT BEDSIDE TO MANAGE PT ANXIETY AND ASSIST WITH COMMUNICATION, PT UKRAINIAN SPEAKING. PT C/O CHRONIC RIGHT SHOULDER PAIN PT GIVEN TYLENOL 650MG PO.
[2017-02-19] MEDS: ALPRAZOLAM 0.25 MG TABLET PO PRN ×2 (02:33→23:54)
--- NOTE | 2017-02-19 02:47 | NUR ---
HARP MAKER DF PT WITH ANXIETY PT/FAMILY REQUESTING XANAX 0.25MG PO PRN ANXIETY. ONCOLOGY PHYSICIAN ASSISTANT ORDERED.
[2017-02-19] MEDS: MEROPENEM 1 G in IV NS 0.9% 100 ML IV SCH ×2 (04:08→17:13)
[2017-02-19] MEDS: ALBUTEROL FS 2.5 MG/0.5 ML VIAL.NEB NEB PRN (04:22)
--- NOTE | 2017-02-19 04:29 | NUR ---
PTY ASSESSED WITH AUDIBLE WHEEZING THROUGHOUT.PT ON SIMPLE MASK @ 8LPM. PT WITH EPISODES OF DESATURATION. ORDER RECEIVED FOR XOPENEX 0.63 HHN PRN Q 4HR. RT ANDREA AT BEDSIDE FOR RESPIRATORY ASSESSMENT WITH TREATMENT. PT SATURATION IMPROVING WITH TREATMENT. PT WITH ANXIETY KEEPS WANTING TO GET OOB/SIT AT EDGE OF BEDSIDE. I AND PT,S DAUGHTER EXCESSIVELY INFORMED PT DUE TO SOB/DESAT SHE IS TO REMAIN ON BEDREST AT THIS TIME. DIANA DEPARTED TO WAITING ROOM, MY WORKSTATION WITHIN VIEW OF PT, BED ALARM ON FOR PT SAFETY.
[2017-02-19] MEDS ORDERED: LEVALBUTEROL HCL NEB 1.25 MG/0.5 ML VIAL.NEB NEB PRN (04:30)
[2017-02-19 04:51] LABS: HEMATOCRIT 30 % (33-45); HEMOGLOBIN 9.9 g/dL (11.5-14.8); LYMPHOCYTES # (AUTO) 0.6 /CMM (0.8-4.8); LYMPHOCYTES % (AUTO) 2.3 % (20.0-44.0); MEAN CORPUSCULAR HEMOGLOBIN 30 PG (26.0-33.0); MEAN CORPUSCULAR HGB CONC 33 g/dl (31.0-36.0); MEAN CORPUSCULAR VOLUME 91 fL (82-100); MONOCYTES # (AUTO) 1.3 /CMM (0.1-1.30); MONOCYTES % (AUTO) 4.8 % (2.0-12.0); NEUTROPHILS # (AUTO) 24.9 /CMM (1.8-8.9); NEUTROPHILS % (AUTO) 92.9 % (43.0-81.0); PLATELET COUNT (AUTO) 262 /CMM (150-450); RDW COEFFICIENT OF VARIATION 17.2 (11.5-15.0); RED BLOOD CELL COUNT(AUTO) 3.32 MIL/uL (4.0-5.2); WHITE BLOOD COUNT (AUTO) 26.8 K/uL (4.3-11.0)
[2017-02-19 05:07] LABS: ALANINE AMINOTRANSFERASE 18 U/L (12-78); ALKALINE PHOSPHATASE 76 U/L (46-116); ASPARTATE AMINOTRANSFERASE 29 U/L (15-37); BILIRUBIN,TOTAL 0.5 mg/dL (0.2-1.0); CALCIUM, SERUM 7.9 mg/dL (8.5-10.1); CARBON DIOXIDE 23 mmol/L (21-32); CHLORIDE 97 mmol/L (98-107); CREATININE 2.3 mg/dL (0.6-1.3); GLUCOSE 176 mg/dL (74-106); MAGNESIUM 1.9 mg/dL (1.8-2.4); PHOSPHORUS 4.5 mg/dL (2.5-4.9); POTASSIUM 3.8 mmol/L (3.5-5.1); SODIUM SERUM 131 mmol/L (136-145); TOTAL PROTEIN, SERUM 6.5 g/dL (6.4-8.2); UREA NITROGEN, BLOOD 40 mg/dL (7-18)
[2017-02-19 05:14] LABS: CHOLESTEROL 55 mg/dL (<200); HDL CHOLESTEROL 12 mg/dL (40-60); LDL 20 mg/dL (0-99); TRIGLYCERIDES 78 mg/dL (30-150)
[2017-02-19 05:21] LABS: TROPONIN I 1.875 ng/mL (0.00-0.056)
[2017-02-19] MEDS ORDERED: NOREPINEPHRINE 4 MG/4 ML AMPUL IV ONE (06:07)
[2017-02-19] MEDS: NOREPINEPHRINE 8 MG in IV D5W 500 ML IV PRN ×2 (06:34→09:43)
[2017-02-19] MEDS: VANCOMYCIN 1 GM in IV D5W 250 ML IV SCH (06:35)
[2017-02-19] MEDS: VANCOMYCIN HCL 125 MG/2.5 ML ORAL.SUSP PO SCH ×4 (06:36→23:33)
--- NOTE | 2017-02-19 06:52 | NUR ---
CANDLE MOLDER HAND DF HEPARIN GTT 02/19/17 PTT OF 74. PER HEPARIN ACS PROTOCOL DECREASE HEPARIN GTT BY 50 UNITS/HR. NEW RATE OF 600 UNITS/HR. NEXT PTT @1300.
--- NOTE | 2017-02-19 07:45 | NUR ---
ICU/RN - Initial Notes Received pt in bed, awake, alert to self. Garbled speech. Appears anxious, complains of anxiety and requesting for medication. Denies pain or discomfort. IV patent and intact, on Heparin gtt, Amiodarone gtt, and Levophed. Goncalves catheter intact draining urine to gravity. Safety and comfort measures in place. Will continue to monitor pt closely.
--- NOTE | 2017-02-19 08:00 | NUR ---
ICU/RN - Notes Pt O2 saturation on simple mask @ 8lpm 88-90%. Titrated oxygen up to 15lpm via non-rebreather mask. Will continue to monitor.
[2017-02-19] MEDS: ASPIRIN 81 MG TAB.CHEW PO SCH (08:26)
[2017-02-19] MEDS: ESCITALOPRAM OXALATE (10 MG) 10 MG TABLET PO SCH (08:26)
[2017-02-19] MEDS ORDERED: FUROSEMIDE 20 MG/2 ML VIAL IV ONE (08:30)
[2017-02-19] MEDS: LEVOTHYROXINE SODIUM 75 MCG TABLET PO SCH (08:31)
[2017-02-19] MEDS ORDERED: POTASSIUM CHLORIDE 20 MEQ TAB.PRT.SR PO SCH (09:00)
[2017-02-19] MEDS: HEPARIN INFUSION/D5W 500 ML IV PRN (09:43)
[2017-02-19] MEDS ORDERED: ESCITALOPRAM OXALATE (10 MG) 10 MG TABLET PO SCH (10:00)
--- NOTE | 2017-02-19 13:30 | NUR ---
ICU/RN - Notes PTT 73, no change in Heparin gtt rate per protocol. PTT ordered for tomorrow 02/20/17 at 0630 per protocol
[2017-02-19 15:06] LABS: ABG BASE EXCESS -7.9 mmol/L; ABG OXYGEN SATURATION 88.8 % (92.0-98.5); ABG PCO2 57.2 mmHg (35.0-45.0); ABG PH 7.177 (7.350-7.450); ABG PO2 63.8 mmHg (75.0-100.0); COHb 0.2 % (0.5-1.5); MetHb 0.4 % (0.0-1.5); O2Hb 88.3 % (94.0-97.0); SITE, ABG Right Radial; VENT MODE, BG 100% NRB MASK
--- NOTE | 2017-02-19 15:25 | NUR ---
ICU/RN - Notes Pt's O2 saturation on 15L via non-rebreather 88-91%. Shallow breathing noted. Pt increasingly lethargic and anxious. ABG ordered and results relayed to MD. Pt placed on Bipap RT with settings as ordered. Son at bedside and updated on plan of care. Will continue to monitor.
--- NOTE | 2017-02-19 17:27 | NUR ---
ICU/RN - Notes Vancocin unable to administer at this time, risk for aspiration, as pt is on Bipap and has difficulty swallowing. Swallow evaluation ordered.
--- NOTE | 2017-02-19 19:16 | NUR ---
RN:ICU: PT RECEIVED IN BED ALERT ON BIPAP. PT ON LEVOPHED GTT FOR BP SUPPORT. PT ALSO RECEIVING HEPARIN GTT AT 600 UNITS/HR FOR NSTEMI/ACS PROTOCOL. PER DAYSHIFT PT HAVING DIFFICULTY SWALLOWING PILLS AND WAS NOTED TO HAVE POSSIBLE ASPIRATION WHEN ATTEMPTING TO ADMIN PO MEDS. SWALLOW EVAL ORDERED FOR AM. NO BLEEDING NOTED. WILL CONTINUE TO MONITOR CLOSELY.
--- NOTE | 2017-02-19 20:28 | NUR ---
RN:ICU: PT SON AT THE BEDSIDE AND UPDATED REGARDING POC. PT REPOSITIONED WITH SON ON HER SIDE. FOR PTT 76 FOR ACS PROTOCOL, HEPARIN GTT DECREASED FROM 500 TO 600 UNITS/HR. NEXT PTT AT 0200. ED RN VERIFIED. WILL CONTINUE TO MONITOR CLOSELY.
[2017-02-20] VITALS (105 sets, daily range): BP systolic 58–122; BP diastolic 33–85
--- NOTE | 2017-02-20 00:51 | NUR ---
RN;ICU: PT BECOMING INCREASINGLY ANXIOUS. ATTEMPTED TO MAKE PT COMFORTABLE BUT PT KEEPS CRYING FOR HER DAUGHTER. PT EDUCATED THAT IT IS NIGHT TIME AND SHE MUST GET REST. PT GIVEN XANAX FOR PT ANXIETY. BOTTOM DENTURES REMOVED THE ARE SLIPPING OFF IN HER MOUTH AND SOMEWHAT OCCLUDING HER AIRWAY. DENTURES PLACED IN CONTAINER AT THE BEDSIDE. ASPIRATION PRECAUTIONS IMPLEMENTED. WILL CONTINUE TO MONITOR CLOSELY.
--- NOTE | 2017-02-20 03:52 | NUR ---
RN:ICU: PT EXTREMELY ANXIOUS SCREAMING AND TRYING TO REMOVE BIPAP. ASKED FOR TRANSLATION FROM SLOVENIAN SPEAKING RT. PT WANTS TO EAT BUT BECOMES VERY SOB WITHOUT BIPAP. EXPLAINED TO PATIENT. PT HR UNCONTROLLED AFIB 150'S-120'S. EKG PERFORMED PER PROTOCOL, SHOWING RBBB AND LAFB, WITH WIDE QRS TACHYCARDIA. PT HAS ALLERGIES TO ALL OTHER ANTIANXIETY MEDICATIONS. CONTACTED MD REGARDING INCREASED HR. WILL CONTINUE TO MONITOR CLOSELY.
[2017-02-20] MEDS ORDERED: AMIODARONE 150 MG/3 ML VIAL IV ONE (04:19)
--- NOTE | 2017-02-20 04:19 | NUR ---
RN:ICU: SPOKE WITH DR MARTINEZ REGARDING PT AGITATION AND INCREASED HR. NEW ORDERS TO RESTART AMIO GTT PER PROTOCOL WITH OUT BOLUS. PER MD STRICKLAND TO NOTIFY DR GUITERREZ IN AM. ORDERS CARRIED OUT.
[2017-02-20] MEDS: MEROPENEM 1 G in IV NS 0.9% 100 ML IV SCH (04:29)
[2017-02-20] MEDS ORDERED: AMIODARONE 900 MG in IV D5W 482 ML IV PRN (04:30)
[2017-02-20 04:56] LABS: HEMATOCRIT 27 % (33-45); HEMOGLOBIN 8.8 g/dL (11.5-14.8); LYMPHOCYTES # (AUTO) 0.6 /CMM (0.8-4.8); LYMPHOCYTES % (AUTO) 4.2 % (20.0-44.0); MEAN CORPUSCULAR HEMOGLOBIN 29 PG (26.0-33.0); MEAN CORPUSCULAR HGB CONC 32 g/dl (31.0-36.0); MEAN CORPUSCULAR VOLUME 91 fL (82-100); MONOCYTES # (AUTO) 1.1 /CMM (0.1-1.30); MONOCYTES % (AUTO) 8.3 % (2.0-12.0); NEUTROPHILS # (AUTO) 12.1 /CMM (1.8-8.9); NEUTROPHILS % (AUTO) 87.5 % (43.0-81.0); PLATELET COUNT (AUTO) 240 /CMM (150-450); RDW COEFFICIENT OF VARIATION 17.3 (11.5-15.0); RED BLOOD CELL COUNT(AUTO) 3.03 MIL/uL (4.0-5.2); WHITE BLOOD COUNT (AUTO) 13.8 K/uL (4.3-11.0)
[2017-02-20] MEDS: VANCOMYCIN HCL 125 MG/2.5 ML ORAL.SUSP PO SCH ×3 (05:03→17:04)
[2017-02-20 05:12] LABS: ALANINE AMINOTRANSFERASE 24 U/L (12-78); ALBUMIN 1.8 g/dL (3.4-5.0); ALKALINE PHOSPHATASE 68 U/L (46-116); ASPARTATE AMINOTRANSFERASE 53 U/L (15-37); BILIRUBIN,TOTAL 0.4 mg/dL (0.2-1.0); CALCIUM, SERUM 8.1 mg/dL (8.5-10.1); CARBON DIOXIDE 23 mmol/L (21-32); CHLORIDE 97 mmol/L (98-107); CREATININE 2.2 mg/dL (0.6-1.3); GLUCOSE 137 mg/dL (74-106); PHOSPHORUS 5.3 mg/dL (2.5-4.9); POTASSIUM 4.5 mmol/L (3.5-5.1); SODIUM SERUM 131 mmol/L (136-145); TOTAL PROTEIN, SERUM 6.1 g/dL (6.4-8.2); UREA NITROGEN, BLOOD 47 mg/dL (7-18)
--- NOTE | 2017-02-20 06:48 | NUR ---
RN:ICU: PT CONTINUES TO HAVE PERIODS OF RESTLESSNESS AND AGITATION. PT SCREAMING AND ATTEMPTING TO REMOVE BIPAP. ATTEMPTED TO ASSIST PT MULTIPLE TIMES BUT PT IS INCONSOLABLE. PT CONTINUES WITH RAPID AFIB ON AMIO GTT 1MG/MIN, LEVOPHED GTT AT 4MCG/MIN AND HEPARIN GTT. PTT THERAPEUTIC CONTINUE TO RUN HEPARIN AT 500 UNITS/HR UNTIL NEXT PTT IN AM. PT DENTURES AT THE BEDSIDE IN DENTURE CUP. WILL ENDORSE CARE TO NEXT SHIFT.
[2017-02-20] MEDS: LEVOTHYROXINE SODIUM 75 MCG TABLET PO SCH (07:30)
--- NOTE | 2017-02-20 07:45 | NUR ---
ICU/RN - Initial Notes Received pt in bed, awake, alert to self. Garbled speech. No s/s of pain or discomfort. On Bipap with settings as ordered. Right femoral TLC patent and intact, on Heparin gtt, Amiodarone gtt, and Levophed. Goncalves catheter intact draining urine to gravity. Safety and comfort measures in place. Will continue to monitor pt closely.
[2017-02-20] MEDS ORDERED: PHENYLEPHRINE 20 MG in IV D5W 250 ML IV PRN ×4 (08:00)
[2017-02-20 08:05] LABS: ABG BASE EXCESS -7.4 mmol/L; ABG OXYGEN SATURATION 96.5 % (92.0-98.5); ABG PCO2 32.7 mmHg (35.0-45.0); ABG PH 7.344 (7.350-7.450); ABG PO2 94.9 mmHg (75.0-100.0); AaDO2 441.2 mmHg; COHb 0.2 % (0.5-1.5); MetHb 0.3 % (0.0-1.5); SITE, ABG Right Brachial; VENT MODE, BG BIPAP 15/8 R 14 80%
--- NOTE | 2017-02-20 08:05 | NUR ---
ICU/RN - Notes Pt unable to swallow medications in attempting to administer PO medications. Fluid remains in mouth and unable to swallow at this time. Aspiration precautions taken place.
--- NOTE | 2017-02-20 08:15 | NUR ---
ICU/RN - Notes Pt taken off Bipap and placed on non-rebreather mask @ 15lpm. Pt unable to tolerated and quickly desaturates to low 80's. Pt placed back on Bipap by RT.
[2017-02-20] MEDS: ESCITALOPRAM OXALATE (10 MG) 10 MG TABLET PO SCH (08:47)
[2017-02-20] MEDS: ASPIRIN 81 MG TAB.CHEW PO SCH (08:47)
[2017-02-20] MEDS ORDERED: D5W IV PRN ×2 (09:00)
[2017-02-20] MEDS ORDERED: [UNRECOGNIZED DRUG - OTHER] IV PRN ×2 (09:00)
--- NOTE | 2017-02-20 10:50 | NUR ---
ICU/RN - Notes Dr Perry made aware that pt unable to swallow at this time, and quickly desaturates off Bipap. New orders received for swallow evaluation, and to keep pt NPO. Will carry out.
[2017-02-20] MEDS: HEPARIN INFUSION/D5W 500 ML IV PRN (10:55)
--- NOTE | 2017-02-20 12:00 | NUR ---
ICU/RN - Notes Pt converted to sinus rhythm 84.
[2017-02-20] MEDS: PHENYLEPHRINE 80 MG in IV D5W 250 ML IV PRN (14:02)
[2017-02-20] MEDS: LACTOBACILLUS RHAMNOSUS GG 1 EACH CAP.SPRINK PO SCH (16:23)
[2017-02-20] MEDS: MEROPENEM 500 MG in IV NS 0.9% 50 ML IV SCH (16:26)
[2017-02-20] MEDS: VANCOMYCIN 1 GM in IV D5W 250 ML IV SCH (17:13)
--- NOTE | 2017-02-20 17:30 | NUR ---
ICU/RN - Notes Pt unable to swallow medications in attempting to administer PO medications. Fluid remains in mouth and unable to swallow at this time. Aspiration precautions taken place. Pt kept NPO as ordered.
--- NOTE | 2017-02-20 19:30 | NUR ---
DIAL PRINTER INITIAL NOTE RECEIVED REPORT FROM YVONNE ROSA. PT IN BED. A/A/O X2. ON BIPAP SETTINGS 15/8 RATE 14 FIO2 70%. LUNG SOUNDS CRACKLES. BOWEL SOUNDS PRESENT, INCONTINENT. PT HAD A BM, CLEANED AND ZGUARD APPLIED. PYLE INTACT AND DRAINING YELLOW URINE. PULSES PRESENT. IV PATENT AND INTACT WITH HEPARIN, SAMANTHA, AMIODARONE. WILL CONTINUE TO MONITOR. BED IN LOW LOCKED POSITION. CALL LIGHT WITHIN REACH.
--- NOTE | 2017-02-20 21:20 | NUR ---
MARKETING ANALYTICS LEAD PT HAS BM, CLEANED AND REPOSITIONED FOR COMFORT. PT CURRENTLY TOLERATING BIPAP SETTINGS. WILL CONTINUE TO MONITOR.
[2017-02-20] MEDS: TRAZODONE 50 MG TABLET PO SCH (22:09)
[2017-02-21] VITALS (99 sets, daily range): BP systolic 77–123; BP diastolic 38–77
[2017-02-21] MEDS: VANCOMYCIN HCL 125 MG/2.5 ML ORAL.SUSP PO SCH ×4 (00:02→17:13)
--- NOTE | 2017-02-21 02:15 | NUR ---
ROCKET SCIENTIST PTT RESULTS 52. NO CHANGE ON HEPARIN DRIP, CONTINUE 500 UNITS AND HOUR. WILL CONTINUE TO MONITOR.
[2017-02-21] MEDS: MEROPENEM 500 MG in IV NS 0.9% 50 ML IV SCH ×2 (04:17→17:17)
[2017-02-21 04:54] LABS: EOSINOPHILS # (AUTO) 0.2 /CMM (0.0-0.7); EOSINOPHILS % (AUTO) 1.1 % (0.0-6.0); HEMATOCRIT 28 % (33-45); HEMOGLOBIN 8.9 g/dL (11.5-14.8); LYMPHOCYTES # (AUTO) 1.2 /CMM (0.8-4.8); LYMPHOCYTES % (AUTO) 8.1 % (20.0-44.0); MEAN CORPUSCULAR HEMOGLOBIN 29 PG (26.0-33.0); MEAN CORPUSCULAR HGB CONC 32 g/dl (31.0-36.0); MEAN CORPUSCULAR VOLUME 91 fL (82-100); MONOCYTES # (AUTO) 1.4 /CMM (0.1-1.30); MONOCYTES % (AUTO) 9.1 % (2.0-12.0); NEUTROPHILS # (AUTO) 12.5 /CMM (1.8-8.9); NEUTROPHILS % (AUTO) 81.7 % (43.0-81.0); PLATELET COUNT (AUTO) 197 /CMM (150-450); RDW COEFFICIENT OF VARIATION 17.4 (11.5-15.0); RED BLOOD CELL COUNT(AUTO) 3.07 MIL/uL (4.0-5.2); WHITE BLOOD COUNT (AUTO) 15.3 K/uL (4.3-11.0)
[2017-02-21 05:08] LABS: CALCIUM, SERUM 7.9 mg/dL (8.5-10.1); CARBON DIOXIDE 21 mmol/L (21-32); CHLORIDE 96 mmol/L (98-107); CREATININE 2.2 mg/dL (0.6-1.3); GLUCOSE 107 mg/dL (74-106); MAGNESIUM 2.2 mg/dL (1.8-2.4); PHOSPHORUS 6.6 mg/dL (2.5-4.9); POTASSIUM 4.6 mmol/L (3.5-5.1); SODIUM SERUM 128 mmol/L (136-145); UREA NITROGEN, BLOOD 62 mg/dL (7-18)
[2017-02-21] MEDS: PHENYLEPHRINE 80 MG in IV D5W 250 ML IV PRN ×2 (05:15→14:41)
[2017-02-21] MEDS: LEVOTHYROXINE SODIUM 75 MCG TABLET PO SCH (07:30)
[2017-02-21] MEDS: ESCITALOPRAM OXALATE (10 MG) 10 MG TABLET PO SCH (08:03)
[2017-02-21] MEDS: ASPIRIN 81 MG TAB.CHEW PO SCH (08:03)
[2017-02-21] MEDS: LACTOBACILLUS RHAMNOSUS GG 1 EACH CAP.SPRINK PO SCH ×2 (08:03→17:00)
[2017-02-21 08:24] LABS: THYROID STIMULATING HORMONE 1.311 uIU/mL (0.358-3.74)
[2017-02-21 09:39] LABS: ABG BASE EXCESS -8.6 mmol/L; ABG PCO2 34.8 mmHg (35.0-45.0); ABG PH 7.303 (7.350-7.450); ABG PO2 98.5 mmHg (75.0-100.0); AaDO2 435.4 mmHg; COHb 0.3 % (0.5-1.5); MetHb 0.3 % (0.0-1.5); O2Hb 95.4 % (94.0-97.0); SITE, ABG Right Radial; VENT MODE, BG 15 L NRB MASK
[2017-02-21] MEDS: DIGOXIN INJ 0.5 MG/2 ML AMPUL IV SCH ×3 (10:14→22:16)
[2017-02-21] MEDS: HEPARIN INFUSION/D5W 500 ML IV PRN (14:43)
[2017-02-21 15:05] LABS: APPEARANCE,URINE SL CLOUDY (CLEAR); BILIRUBIN,URINE NEGATIVE (NEGATIVE); BLOOD, URINE 1+ Ery/uL (NEGATIVE); COLOR,URINE YELLOW (YELLOW); KETONES,URINE NEGATIVE (NEGATIVE); LEUKOCYTE ESTERASE ,URINE NEGATIVE (NEGATIVE); NITRITE, URINE NEGATIVE (NEGATIVE); PROTEIN,URINE 2+ mg/dl (NEGATIVE); UGLUCOSE NEGATIVE (NEGATIVE); UROBILINOGEN,URINE 0.2 EU/dL (0.2)
[2017-02-21 15:14] LABS: CREATININE, URINE 75.3 MG/DL (30.0-125.0)
[2017-02-21 15:19] LABS: BACTERIA,URINE Few /HPF (None Seen)
[2017-02-21 15:20] LABS: SQUAMOUS EPITHELIAL CELL,UR Few /HPF (None Seen); YEAST,URINE Few /HPF (None Seen)
--- NOTE | 2017-02-21 16:06 | NUR ---
SOCKET WELDER HELPER NOTE 0720: Received patient awake, A/Ox2 and noted with confusion. Right femoral TLC intact. On Maikel @ 110mcg, will titrate accordingly. Also on Heparin @ 500units/hr, with order of repeat PTT in am. Will keep NPO for risk of aspiration. Placed on contact isolation for ESBL urine and blood. S/E by Dr. Shen, will continue Heparin for elevated Trop. 0730: RT placed patient on 15LPM of O2 via NRB mask, will monitor breathing. 0930: S/E by Dr. Feldman, Aware for ABG, will. continue to monitor on NRB mask. 0945: S/E by Dr. Lzacano, patient with c/o tightness for DVT pumps, MD said may remove DVT sleeves per patient request. Daughter at bedside, MD discussed re: the POC, all questions were answered. 0950: S/E by Dr. Crawley, aware for low UOP, aware no diuretics ordered for today. 1000: Cleaned patient, noted with dark stool but not enough for specimen collection, will continue to monitor BM. 1300: S/E by ST for swallow eval. Patient does not want to cooperate at this time, and per ST still unable to start on diet for patient still on Bipap, daughter at bedside aware. 1530: S/E by ELIZABETH Ríos NP and made aware, patient is NPO for now and unable to take PO meds, said will order another ATB. 1600: RT placed patient on Bipap for patient's c/o feeling hard of breathing.
[2017-02-21] MEDS: METRONIDAZOLE 500MG/ NS 100ML 500 MG in PREMIX 1 EA IV SCH (17:55)
--- NOTE | 2017-02-21 20:00 | NUR ---
SURGICAL LEAD - NOTES - RECEIVED PT IN BED. A/A/O X2. ON BIPAP SETTINGS 15/5 RATE 12 FIO2 50%. LUNG SOUNDS CRACKLES. BOWEL SOUNDS PRESENT, INCONTINENT. PT HAD A BM, CLEANED AND ZGUARD APPLIED. PYLE INTACT AND DRAINING YELLOW URINE. PULSES PRESENT. R FEM TLC PATENT AND INTACT WITH HEPARIN, SAMANTHA. WILL CONTINUE TO MONITOR. BED IN LOW LOCKED POSITION. CALL LIGHT WITHIN REACH.
[2017-02-21] MEDS: TRAZODONE 50 MG TABLET PO SCH (22:31)
[2017-02-22] VITALS (51 sets, daily range): BP systolic 83–135; BP diastolic 37–93
[2017-02-22] MEDS: METRONIDAZOLE 500MG/ NS 100ML 500 MG in PREMIX 1 EA IV SCH ×4 (01:11→23:18)
[2017-02-22] MEDS: VANCOMYCIN HCL 125 MG/2.5 ML ORAL.SUSP PO SCH ×5 (01:11→23:18)
--- NOTE | 2017-02-22 02:00 | NUR ---
PT HAD A ANOTHER BM, LIQUID DARK BROWN, PT CLEANED, FULL BED BATH GIVEN, ALL LINENS CHANGED
--- NOTE | 2017-02-22 05:00 | NUR ---
SAMANTHA OFF AT 0500, BP STABLE
[2017-02-22 05:06] LABS: VANCOMYCIN,TROUGH 18 ug/ml (12-20)
[2017-02-22] MEDS: MEROPENEM 500 MG in IV NS 0.9% 50 ML IV SCH ×2 (05:15→17:10)
[2017-02-22 05:29] LABS: OSMOLALITY,SERUM 289 mOS/kg (278-305)
[2017-02-22 05:37] LABS: CARBON DIOXIDE 21 mmol/L (21-32); CHLORIDE 98 mmol/L (98-107); CREATININE 1.8 mg/dL (0.6-1.3); GLUCOSE 95 mg/dL (74-106); POTASSIUM 4.5 mmol/L (3.5-5.1); SODIUM SERUM 132 mmol/L (136-145); UREA NITROGEN, BLOOD 70 mg/dL (7-18)
[2017-02-22] MEDS: VANCOMYCIN 1 GM in IV D5W 250 ML IV SCH (06:14)
--- NOTE | 2017-02-22 07:47 | NUR ---
DIRECTOR OF SUSTAINABILITY PROGRAMS INITIAL NOTE RECEIVED REPORT FROM ALEXIA ROSA. PT IN BED. A/A/O X2. ON BIPAP SETTINGS 15/8 RATE 14 FIO2 50%. LUNG SOUNDS CLEAR DIMINISHED AT BASE . BOWEL SOUNDS PRESENT IN ALL FOUR QUADRANTS , INCONTINENT. PT HAD A BM DARK TARRY - STOOL COLLECTED FOR SPECIMEN , CLEANED AND ZGUARD APPLIED. PYLE INTACT AND DRAINING YELLOW URINE. PULSES PRESENT. IV PATENT AND INTACT WITH HEPARIN DRIP NO CHANGES THIS AM RN WILL CONTINUE TO MONITOR. BED IN LOW LOCKED POSITION. CALL LIGHT WITHIN REACH.
[2017-02-22 08:07] LABS: BASOPHILS % (AUTO) 0.3 % (0.0-2.0); EOSINOPHILS # (AUTO) 0.4 /CMM (0.0-0.7); EOSINOPHILS % (AUTO) 2.9 % (0.0-6.0); HEMATOCRIT 27 % (33-45); HEMOGLOBIN 8.8 g/dL (11.5-14.8); LYMPHOCYTES # (AUTO) 1.1 /CMM (0.8-4.8); LYMPHOCYTES % (AUTO) 7.2 % (20.0-44.0); MEAN CORPUSCULAR HEMOGLOBIN 30 PG (26.0-33.0); MEAN CORPUSCULAR HGB CONC 33 g/dl (31.0-36.0); MEAN CORPUSCULAR VOLUME 90 fL (82-100); MONOCYTES # (AUTO) 1.2 /CMM (0.1-1.30); MONOCYTES % (AUTO) 8.4 % (2.0-12.0); NEUTROPHILS # (AUTO) 11.9 /CMM (1.8-8.9); NEUTROPHILS % (AUTO) 81.2 % (43.0-81.0); PLATELET COUNT (AUTO) 175 /CMM (150-450); RDW COEFFICIENT OF VARIATION 16.1 (11.5-15.0); RED BLOOD CELL COUNT(AUTO) 2.98 MIL/uL (4.0-5.2); WHITE BLOOD COUNT (AUTO) 14.6 K/uL (4.3-11.0)
[2017-02-22] MEDS: LACTOBACILLUS RHAMNOSUS GG 1 EACH CAP.SPRINK PO SCH ×2 (08:38→17:10)
[2017-02-22] MEDS: LEVOTHYROXINE SODIUM 75 MCG TABLET PO SCH (08:38)
[2017-02-22] MEDS: ASPIRIN 81 MG TAB.CHEW PO SCH (08:38)
[2017-02-22] MEDS: ESCITALOPRAM OXALATE (10 MG) 10 MG TABLET PO SCH (08:38)
[2017-02-22] MEDS: HEPARIN SODIUM, PORCINE 5000 UNITS/1 ML VIAL SQ SCH ×2 (08:40→20:37)
--- NOTE | 2017-02-22 08:45 | NUR ---
placed into 15 lpm o2 flow via NRM. spo2 98% hr 86 Addendum: 02/22/17 at 0845 by ARISTIDES PALM RT Amended: Links added.
--- NOTE | 2017-02-22 09:18 | NUR ---
AUTO ELECTRICAL TECHNICIAN NOTE PATIENT DAUGHTER UPDATED ON PLAN OF CARE , PATIENT CURRENTLY RECEIVING A SHALLOW EVALUATION RN WILL CONTINUE TO FOLLOW Addendum: 02/22/17 at 0952 by GUERLINE DELUNA RN SWALLOW EVALUATION
--- NOTE | 2017-02-22 16:00 | NUR ---
COATING MACHINE OPERATOR HELPER NOTE PATIENT DISCHARGE HELD TODAY PER MD SVITLANA AUGUSTE , STATES PATIENT IS NOT STABLE ENOUGH TO DOWN GRADE TO [facility] STATUS OR TO [facility] [place]
--- NOTE | 2017-02-22 18:33 | NUR ---
BOILERMAKER WELDER CLOSING NOTE PATIENT REMAINS IN STABLE CONDITION , DAUGHTER REMAINS AT BEDSIDE DAUGHTER UPDATED ON PLAN OF CARE PATIENT CURRENTLY HAS NON REBREATHER ON AT 15 L, PATIENT HAS NO COMPLAINTS OF PAIN OR SOB NOTED AT THIS TIME YANKER AT BEDSIDE FOR SECRETIONS. PATIENT TURNED AND REPOSITIONED Q 2HRS ALL NEEDS ATTENDED , CALL LIGHT WITHIN REACH SIDE RAILS UP. RN WILL ENDORSE CONTINUATION OF CARE TO PM RN
--- NOTE | 2017-02-22 19:43 | NUR ---
PT RECEIVED ON NRB O2 SAT 98%. NO RESP DISTRESS. BIPAP S/B. WILL CONTINUE TO MONITOR.
--- NOTE | 2017-02-22 19:59 | NUR ---
BRANCH OFFICER - NOTES - RECEIVED PT IN BED. A/A/O X2. ON NONREBREATHER 15 LPM. LUNG SOUNDS CLEAR DIMINISHED AT BASE . BOWEL SOUNDS PRESENT IN ALL FOUR QUADRANTS , INCONTINENT. PYLE INTACT AND DRAINING YELLOW URINE. PULSES PRESENT. IV PATENT AND INTACT WITH HEPARIN DRIP NO CHANGES THIS AM RN WILL CONTINUE TO MONITOR. BED IN LOW LOCKED POSITION. CALL LIGHT WITHIN REACH.
[2017-02-22] MEDS: TRAZODONE 50 MG TABLET PO SCH (21:46)
[2017-02-23] VITALS (37 sets, daily range): BP systolic 87–127; BP diastolic 44–62
[2017-02-23] MEDS: ALBUTEROL FS 2.5 MG/0.5 ML VIAL.NEB NEB PRN (00:39)
[2017-02-23] MEDS: ALPRAZOLAM 0.25 MG TABLET PO PRN ×3 (00:46→19:52)
--- NOTE | 2017-02-23 01:00 | NUR ---
PT COMPLAINING OF ANXIETY, XANAX GIVEN PER ORDER, WILL CONTINUE TO MONITOR, BP WNL
[2017-02-23 04:57] LABS: CALCIUM, SERUM 8.2 mg/dL (8.5-10.1); CARBON DIOXIDE 25 mmol/L (21-32); CHLORIDE 104 mmol/L (98-107); CREATININE 1.3 mg/dL (0.6-1.3); GLUCOSE 98 mg/dL (74-106); POTASSIUM 4.4 mmol/L (3.5-5.1); SODIUM SERUM 138 mmol/L (136-145); UREA NITROGEN, BLOOD 63 mg/dL (7-18)
--- NOTE | 2017-02-23 05:00 | NUR ---
FULL BED BATH GIVEN, ALL LINENS CHANGED, NO BM
[2017-02-23] MEDS: MEROPENEM 500 MG in IV NS 0.9% 50 ML IV SCH ×2 (05:04→15:52)
[2017-02-23] MEDS: VANCOMYCIN HCL 125 MG/2.5 ML ORAL.SUSP PO SCH ×3 (05:04→17:23)
--- NOTE | 2017-02-23 07:36 | NUR ---
CONTENT DEVELOPMENT MANAGER RECEIVED PATIENT FROM THE PREVIOUS SHIFT. PATIENT IS IN BED. ALERT AND ORIENTED X 2. ABLE TO VERBALIZE NEEDS. PATIENT ASKED FOR XANAX AT THIS TIME. RN INFORMED THAT RN IS UNABLE TO ADMINISTER ZANAX UNTIL 0846H. STABLE VITAL SIGNS. WILL CONTINUE TO MONITOR AND PROVIDE CARE.
[2017-02-23 07:54] LABS: BASOPHILS % (AUTO) 0.1 % (0.0-2.0); EOSINOPHILS # (AUTO) 0.4 /CMM (0.0-0.7); EOSINOPHILS % (AUTO) 2.3 % (0.0-6.0); HEMATOCRIT 28 % (33-45); HEMOGLOBIN 9.3 g/dL (11.5-14.8); LYMPHOCYTES # (AUTO) 1.2 /CMM (0.8-4.8); LYMPHOCYTES % (AUTO) 6.3 % (20.0-44.0); MEAN CORPUSCULAR HEMOGLOBIN 29 PG (26.0-33.0); MEAN CORPUSCULAR HGB CONC 33 g/dl (31.0-36.0); MEAN CORPUSCULAR VOLUME 90 fL (82-100); MONOCYTES % (AUTO) 5.6 % (2.0-12.0); NEUTROPHILS # (AUTO) 16.1 /CMM (1.8-8.9); NEUTROPHILS % (AUTO) 85.7 % (43.0-81.0); PLATELET COUNT (AUTO) 191 /CMM (150-450); RDW COEFFICIENT OF VARIATION 17.4 (11.5-15.0); RED BLOOD CELL COUNT(AUTO) 3.16 MIL/uL (4.0-5.2); WHITE BLOOD COUNT (AUTO) 18.8 K/uL (4.3-11.0)
[2017-02-23] MEDS ORDERED: FUROSEMIDE 20 MG/2 ML VIAL IV ONE (08:30)
[2017-02-23] MEDS: ESCITALOPRAM OXALATE (10 MG) 10 MG TABLET PO SCH (08:48)
[2017-02-23] MEDS: METRONIDAZOLE 500MG/ NS 100ML 500 MG in PREMIX 1 EA IV SCH ×2 (08:48→15:52)
[2017-02-23] MEDS: ASPIRIN 81 MG TAB.CHEW PO SCH (08:48)
[2017-02-23] MEDS: LACTOBACILLUS RHAMNOSUS GG 1 EACH CAP.SPRINK PO SCH ×2 (08:48→15:52)
[2017-02-23] MEDS: HEPARIN SODIUM, PORCINE 5000 UNITS/1 ML VIAL SQ SCH ×2 (08:51→20:49)
[2017-02-23] MEDS: LEVOTHYROXINE SODIUM 75 MCG TABLET PO SCH (08:57)
[2017-02-23 09:17] LABS: ABG BASE EXCESS -3.7 mmol/L; ABG OXYGEN SATURATION 95.7 % (92.0-98.5); ABG PCO2 46.2 mmHg (35.0-45.0); ABG PH 7.307 (7.350-7.450); AaDO2 572.8 mmHg; MetHb 0.3 % (0.0-1.5); O2Hb 95.4 % (94.0-97.0); SITE, ABG Right Radial; VENT MODE, BG non rebreather
[2017-02-23 09:29] LABS: BAND % (MANUAL) 5 % (0.0-5.0); EOSINOPHILS % (MANUAL) 5 % (0-4); LYMPHOCYTES % (MANUAL) 5 % (16-48); MONOCYTES % (MANUAL) 4 % (0-11.0); NEUTROPHILS % (MANUAL) 81 (42-76)
[2017-02-23] MEDS ORDERED: ALBUTEROL FS 2.5 MG/3 ML VIAL.NEB ONE (15:21)
[2017-02-23] MEDS ORDERED: IPRATROPIUM NEB FS 0.5 MG/2.5 ML AMPUL.NEB ONE (15:21)
--- NOTE | 2017-02-23 19:00 | NUR ---
manager crisis Notes 1900 Received patient on high mendez's position,awake,alert,speaks only Welsh but understands and seems coherent and appropriate.On NRM 100% ,saturating 98-100%.No SOB noted ,breathing regular,non labored at this time.TLC right femoral area.Comfort care done ,needs attended.
[2017-02-23] MEDS: TRAZODONE 50 MG TABLET PO SCH (22:08)
[2017-02-24] VITALS (32 sets, daily range): BP systolic 99–143; BP diastolic 29–81
--- NOTE | 2017-02-24 | NUR ---
instructor watch assembly Notes Remains stable,maintained on NRM 100%,agitated on and off,still desatutares when off O2 is off.Comfort care done as needed.
[2017-02-24] MEDS: ACETAMINOPHEN 325 MG TABLET PO PRN (00:28)
[2017-02-24] MEDS: VANCOMYCIN HCL 125 MG/2.5 ML ORAL.SUSP PO SCH ×4 (00:28→17:00)
[2017-02-24] MEDS: METRONIDAZOLE 500MG/ NS 100ML 500 MG in PREMIX 1 EA IV SCH ×3 (00:28→15:11)
[2017-02-24] MEDS: ALPRAZOLAM 0.25 MG TABLET PO PRN ×2 (03:41→20:28)
--- NOTE | 2017-02-24 04:00 | NUR ---
Mountain Guide Notes status unchanged,Saturating 100% on NRM 100%,still desaturates to 80"s when mask is taken off.c/o abdominal discomfort ,will follow up on pain medication (Dr. Wyatt gave an order for dilaudid but patient is allergic to morphine). 0600 Status unchanged,stable.Cleared by from cardiac standpoint to be transfered to [facility].
[2017-02-24 04:49] LABS: CALCIUM, SERUM 8.4 mg/dL (8.5-10.1); CARBON DIOXIDE 30 mmol/L (21-32); CHLORIDE 107 mmol/L (98-107); CREATININE 1.2 mg/dL (0.6-1.3); GLUCOSE 96 mg/dL (74-106); POTASSIUM 3.9 mmol/L (3.5-5.1); SODIUM SERUM 143 mmol/L (136-145); UREA NITROGEN, BLOOD 58 mg/dL (7-18)
[2017-02-24] MEDS: MEROPENEM 500 MG in IV NS 0.9% 50 ML IV SCH ×2 (05:00→17:00)
[2017-02-24] MEDS ORDERED: FUROSEMIDE 100 MG/10 ML VIAL IV SCH (06:00)
[2017-02-24] MEDS ORDERED: POTASSIUM CHLORIDE 20 MEQ TAB.PRT.SR PO SCH (06:00)
--- NOTE | 2017-02-24 07:41 | NUR ---
INITIAL CERTIFIED MASTER SAFE TECHNICIAN NOTE RCVD PT AWAKE AND ALERT, YELLING IN BELARUSIAN REQUESTING ICE AND WATER. PT SEEMED ANXIOUS AND AFRAID. UPON ASSESSMENT PT WAS CALM. AFIB ON TELE. NRB MASK ON TOLERATING WELL. PYLE TO GRAVITY DRAINING YELLOW URINE. R FEMORAL TLC C/D/I/PATENT. NO S/O INFILTRATION/PHLEBITIS OBSERVED UPON FLUSHING. WILL CONTINUE TO MONITOR PT FOR SAFETY AND COMFORT. CALL LIGHT WITHIN REACH. BED IN LOW AND LOCKED POSITION.
[2017-02-24 08:24] LABS: ALBUMIN 1.8 g/dL (3.4-5.0); BILIRUBIN,DIRECT 0.2 mg/dL (0.0-0.2); BILIRUBIN,TOTAL 0.5 mg/dL (0.2-1.0); MAGNESIUM 2.4 mg/dL (1.8-2.4); PHOSPHORUS 4.9 mg/dL (2.5-4.9); TOTAL PROTEIN, SERUM 5.9 g/dL (6.4-8.2)
[2017-02-24] MEDS: LACTOBACILLUS RHAMNOSUS GG 1 EACH CAP.SPRINK PO SCH ×2 (08:26→17:00)
[2017-02-24] MEDS: LEVOTHYROXINE SODIUM 75 MCG TABLET PO SCH (08:26)
[2017-02-24] MEDS: ASPIRIN 81 MG TAB.CHEW PO SCH (08:26)
[2017-02-24] MEDS: HEPARIN SODIUM, PORCINE 5000 UNITS/1 ML VIAL SQ SCH (08:27)
[2017-02-24] MEDS: ESCITALOPRAM OXALATE (10 MG) 10 MG TABLET PO SCH (08:28)
[2017-02-24] MEDS: FUROSEMIDE 100 MG/10 ML VIAL IV SCH ×2 (08:29→12:07)
[2017-02-24] MEDS ORDERED: POTASSIUM CHLORIDE 20 MEQ POWDER PACKET GT ONE (09:00)
[2017-02-24] MEDS: POTASSIUM CHLORIDE 20 MEQ POWDER PACKET GT SCH ×2 (09:07→09:30)
--- NOTE | 2017-02-24 09:09 | NUR ---
RF TEST ENGINEERFIXED CAPITAL CLERK NOTE LEXAPRO HELD PER FAMILY'S REQUEST.
--- NOTE | 2017-02-24 10:39 | NUR ---
TOBACCO SWEEPERSUNDAY [employer] [facility] NOTE SWALLOW EVAL CONDUCTED, SPEECH THERAPIST RECOMMENDS NPO STATUS ONLY ICE CHIPS AT THIS TIME. PT'S FAMILY AWARE. PO POTASSIUM CHLORIDE CHANGED TO IVPB. PER [place] PHARMACIST PO DOSE EQUIVALENT TO IV DOSE PT ALSO ON LASIX TODAY. WILL CONTINUE TO MONITOR.
[2017-02-24] MEDS ORDERED: FLUCONAZOLE IN NS 100 MG in PREMIX 1 EA IV SCH ×4 (11:00→13:00)
--- NOTE | 2017-02-24 11:56 | NUR ---
MASTER BARBER NOTE DR. WHITLEY'S PAANTONIO AT BEDSIDE INFORMED THAT PT HAS BEEN C/O PAIN ON HER LOWER BACK DESPITE BEING REPOSITIONED MULTIPLE TIMES WITH ASSISTANCE OF PT'S DAUGHTER. PT HAS MULTIPLE MEDICATION ALLERGIES AND ONLY TYLENOL FOR PAIN. ANTONIO RECOMMENDED TRAMADOL, PT'S DAUGHTER AGREES WITH THIS TX. ANTONIO WILL RUN RECOMMENDATION BY DR. WHITLEY.
[2017-02-24] MEDS: POTASSIUM CL. PREMIX PERIPHER. 50 ML IV SCH ×2 (12:01→13:20)
[2017-02-24] MEDS ORDERED: TRAMADOL HCL 50 MG TABLET PO PRN (13:00)
--- NOTE | 2017-02-24 16:48 | NUR ---
FRUIT TESTER NOTE SPOKE WITH PT AND PT'S DAUGHTER AT BEDSIDE REGARDING PT'S DECISION TO CHANGE CODE STATUS TO DNR/DNI. GRABIEL LEONG VERIFIED INFORMATION WITH PT'S DAUGHTER. PT IN FULL ACKNOWLEDGEMENT OF NOT WANTING TO HAVE ANY TYPE OF TUBES THROUGH HER MOUTH OR NOSE AT THIS TIME, PT DECLINES TO BE RESUSCITATED AND TO HAVE CHEST COMPRESSIONS PERFORMED ON HER. BITA, PUNCHBOARD STUFFER INVOLVED TO GET POLST DONE. SVITLANA WHITLEY, CAMILA UPDATED ON CHANGE OF CODE STATUS AND SIGNED POLST. ALL PARTIES IN AGREEMENT PT TO BE DNR/DNI AT THIS TIME.
--- NOTE | 2017-02-24 18:15 | NUR ---
SOLAR ENERGY ADVISOR NOTE PER LES, USED CAR RENOVATOR PT TO BE TRANSFERRED TO [facility] TO CONTINUE CARE. AMBULANCE ARRANGEMENTS DONE. PT TO BE PICKED UP AT 2100 BY [facility], WILL GO TO ICU BED 7 CALL REPORT TO [phone]. PT'S DAUGHTER BERNA INFORMED OF ABOVE AND WOULD LIKE PT TO BE MEDICATED WITH XANAX PRIOR TO TRANSPORT. THIS INFORMATION WILL BE ENDORSED TO SCHOOL CAFETERIA COOK HEAD RN. PT REMAINS STABLE, AFIB TOLERATING NRB MASK SHOWING NO S/O DISTRESS/PAIN. PYLE TO GRAVITY DRAINING CLEAR, YELLOW URINE. IV SITE C/D/I/PATENT. NO S/O INFILTRATION/PHLEBITIS OBSERVED. IVF INFUSING TKO. PT'S CARE WILL BE ENDORSED TO SCHOOL CAFETERIA COOK HEAD RN FOR CONTINUITY OF CARE. CALL LIGHT WITHIN REACH. BED IN LOW AND LOCKED POSITION. PT'S DAUGHTER AT BEDSIDE.
--- NOTE | 2017-02-24 19:15 | NUR ---
MEDICAL SAFETY DIRECTOR NOTES RECEIVED PATIENT, SLEEPING COMFORTABLY. NO DISTRESS. PATIENT EASILY AROUSABLE WITH VERBAL AND TACTILE STIMULI. DENIES ANY PAIN AND DISCOMFORT. ON 13LPM OF O2 VIA NRB, SATURATION AT 98%, NO DISTRESS, AIRWAY SUCTIONED WITH MINIMAL AMOUNT OF SPUTUM. R FEMORAL TLC, FLUSHED AND PATENT, GOOD BLOOD RETURN, ON SL. F/C INTACT AND DRAINING WELL WITH CLEAR, YELLOW URINE. SPECIALTY MATTRESS IN PLACE. DVT PUMPS IN PLACE. PATIENT'S NEEDS ANTICIPATED AND MET. SAFETY AND COMFORT ENSURED. BED IN LOW AND LOCKED POSITION. CALL LIGHT IN REACH.
--- NOTE | 2017-02-24 20:00 | NUR ---
HEALTH PROFESSOR NOTES PATIENT FOR TRANSFER TO [facility] FOR CONTINUITY OF CARE. PATIENT PROVIDED WITH PM CARE, KEPT CLEAN AND DRY. SKIN ASSESSMENT DONE, SACRAL REDNESS NOTED, ZGUARD APPLIED. BILATERAL HEELS NOTED TO BE INTACT, BLANCHABLE. BILATERAL PLANTAR FOOT CALLUSES TREATED ORDERED. PATIENT TURNED AND REPOSITIONED. PICTURES TAKEN AND FILED IN CHART.
--- NOTE | 2017-02-24 20:50 | NUR ---
SHOOTER HELPER NOTES GAVE REPORT TO 2 WARE CLEANER FROM [facility]. PATIENT TO BE TRANSFERRED TO [facility]. PATIENT WITH NO DISTRESS. NO C/O PAIN AND DISCOMFORT. PATIENT'S DAUGHTER, BERNA, AT BEDSIDE. D/C PAPERS PREPARED AND ENDORSED ACCORDINGLY. XANAX GIVEN PER DAUGHTER'S REQUEST. LEFT UNIT IN A STABLE CONDITION. REPORT GIVEN TO MELO FROM [facility].
== END 2017-02-24 21:20 | disposition short-term general hospital (02) | DRG 871 ==
LOC: ER 23:55 → ICU 02-18 01:45
PROVIDERS: ADMIT Internal Medicine; ATTEND Internal Medicine
PROC: 06HM33Z Insertion of Infusion Device into Right Femoral Vein, Percutaneous Approach (ICD-10-PCS; 2017-02-18)
PROC: B54BZZA Ultrasonography of Right Lower Extremity Veins, Guidance (ICD-10-PCS; 2017-02-18)
PROC: 5A09457 Assistance with Respiratory Ventilation, 24-96 Consecutive Hours, Continuous Positive Airway Pressure (ICD-10-PCS; principal; 2017-02-19)
DX: A41.9 Sepsis, unspecified organism (principal); R65.21 Severe sepsis with septic shock; I21.A1 Myocardial infarction type 2; E43 Unspecified severe protein-calorie malnutrition; J15.6 Pneumonia due to other Gram-negative bacteria; N17.0 Acute kidney failure with tubular necrosis; J96.01 Acute respiratory failure with hypoxia; J96.02 Acute respiratory failure with hypercapnia; G92 Toxic encephalopathy; J90 Pleural effusion, not elsewhere classified; R53.2 Functional quadriplegia; E44.0 Moderate protein-calorie malnutrition; I50.33 Acute on chronic diastolic (congestive) heart failure; N39.0 Urinary tract infection, site not specified; E87.1 Hypo-osmolality and hyponatremia; B37.49 Other urogenital candidiasis; I13.0 Hypertensive heart and chronic kidney disease with heart failure and stage 1 through stage 4 chronic kidney disease, or unspecified chronic kidney disease; C18.9 Malignant neoplasm of colon, unspecified; E87.2 Acidosis; D63.8 Anemia in other chronic diseases classified elsewhere; N18.3 Chronic kidney disease, stage 3 (moderate); E03.9 Hypothyroidism, unspecified; E05.90 Thyrotoxicosis, unspecified without thyrotoxic crisis or storm; Z86.73 Personal history of transient ischemic attack (TIA), and cerebral infarction without residual deficits; I34.0 Nonrheumatic mitral (valve) insufficiency; I35.1 Nonrheumatic aortic (valve) insufficiency; Z68.24 Body mass index [BMI] 24.0-24.9, adult; I48.91 Unspecified atrial fibrillation; F03.90 Unspecified dementia, unspecified severity, without behavioral disturbance, psychotic disturbance, mood disturbance, and anxiety; Z66 Do not resuscitate; B96.20 Unspecified Escherichia coli [E. coli] as the cause of diseases classified elsewhere; L89.621 Pressure ulcer of left heel, stage 1; L89.611 Pressure ulcer of right heel, stage 1; E78.5 Hyperlipidemia, unspecified; K21.9 Gastro-esophageal reflux disease without esophagitis; I25.10 Atherosclerotic heart disease of native coronary artery without angina pectoris; I25.2 Old myocardial infarction; Z16.12 Extended spectrum beta lactamase (ESBL) resistance; F32.9 Major depressive disorder, single episode, unspecified; H40.9 Unspecified glaucoma; M81.0 Age-related osteoporosis without current pathological fracture; L89.151 Pressure ulcer of sacral region, stage 1; I27.21 Secondary pulmonary arterial hypertension; I73.9 Peripheral vascular disease, unspecified; Z79.899 Other long term (current) drug therapy
CPT/HCPCS: 36415; 36600; 71010-TC; 80048-TC; 80053-TC; 80061-TC; 80076-TC; 80202-TC; 81000-TC; 82272-TC; 82570-TC; 82803-TC; 83605-TC; 83735-TC; 83935-TC; 84100-TC; 84300-TC; 84439-TC; 84443-TC; 84484-TC; 85025-TC; 85610-TC; 85730-TC; 87040-TC; 87070-TC; 87081-TC; 87086-TC; 87186-TC; 92526; 92611-TC; 93307-TC; 94762-TC; 94799-TC; A4216; A4606; C1751; C1769; J0282; J1160; J1450; J1644; J1940; J1956; J2185; J2370; J2543; J3370; J3480; J3490; J7030; J7040; J7050; J7060; Z7610